=== PATIENT | female | born 1940 | race Caucasian/White ===

== ENCOUNTER 2016-08-19 13:12 | Emergency (ER) | payer OTHER ==
[~2016-08-19] VITALS: Ht 157.5 cm; Wt 72.6 kg
[~2016-08-19 13:12] MED LIST: ASPI81TA83 PO; CALCCHW12 PO; FISH1000 PO; LEVO100T PO; MULTIVIT PO; PAIN325T OR; ROSU10TA PO; SM I100T PO; [UNRECOGNIZED DRUG - OTHER] PO
[2016-08-19] MEDS ORDERED: NORV5TAB PO (13:39)
[2016-08-19 14:30] LABS: BASO % 0.5 % (0.0-1.0); EOS # 0.2 K/mm3 (0.0-0.50); EOS % 2.4 % (0.0-3.0); LARGE UNSTAINED CELL # 0.1 K/mm3 (0.0-0.4); LARGE UNSTAINED CELL % 1.5 % (0.0-4.0); LYMPH # 1.6 K/mm3 (1.5-4.5); LYMPH % 23.6 % (24.0-44.0); MEAN CORPUSCULAR HEMOGLOBIN 31.1 pg (27.0-33.0); MEAN CORPUSCULAR HGB CONC 33.2 g/dl (32.0-36.5); MEAN CORPUSCULAR VOLUME 93.8 fl (80.0-96.0); MONO # 0.5 K/mm3 (0.0-0.8); MONO % 7.1 % (0.0-5.0); NEUTROPHILS # 4.4 K/mm3 (1.8-7.7); NEUTROPHILS % 64.8 % (36.0-66.0); PLATELET COUNT, AUTOMATED 254 k/mm3 (150-450); RED CELL DISTRIBUTION WIDTH 13.1 % (11.5-14.5); WHITE BLOOD COUNT 6.8 K/mm3 (4.0-10.0)
[2016-08-19 14:38] LABS: INR 0.88
[2016-08-19 14:52] LABS: ANION GAP 8 MEQ/L (8-16); BLOOD UREA NITROGEN 23 MG/DL (7-18); CALCIUM LEVEL 8.7 MG/DL (8.8-10.2); CARBON DIOXIDE LEVEL 25 MEQ/L (21-32); CHLORIDE LEVEL 106 MEQ/L (98-107); CREATININE FOR GFR 0.97 MG/DL (0.55-1.02); GLOMERULAR FILTRATION RATE 59.1 (>39); GLUCOSE, FASTING 85 MG/DL (83-110); POTASSIUM SERUM 3.9 MEQ/L (3.5-5.1); SODIUM LEVEL 139 MEQ/L (136-145)
[2016-08-19] MEDS ORDERED: LOSA50TA20 PO (15:11)
[2016-08-19 15:42] VITALS: BP 143/63
--- NOTE | 2016-08-19 16:48 | ECGEPIP ---
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
--- NOTE | 2016-08-20 06:49 | REP ---
CT BRAIN WITHOUT CONTRAST: CT brain is performed without IV contrast. There is moderate atrophy. There are some periventricular small vessel ischemic changes in the white matter seen on prior study of 04/26/2010. There is no acute hemorrhage. There is no extra-axial fluid collection. I do not see evidence of a skull fracture. There are mild vascular calcifications in the carotid siphons. IMPRESSION: Chronic changes. No evidence of acute intracranial hemorrhage. No evidence of skull fracture. Signed by Brendan Leon MD 08/20/2016 07:49 P
--- NOTE | 2016-08-20 06:50 | REP ---
CT MAXILLOFACIAL BONES: CT maxillofacial bones performed in the axial plane with sagittal and coronal reconstruction images. There is no evidence of fracture of the visualized maxillofacial bones. No intrinsic osseous pathology is seen. The paranasal sinuses are clear with no air fluid levels. There are vascular calcifications in the carotid siphons. The globes appear intact. The visualized soft tissue structures appear grossly unremarkable. IMPRESSION: No evidence of maxillofacial bone fracture. Signed by Brendan Leon MD 08/20/2016 07:49 P
== END 2016-08-19 15:45 | disposition home or self-care (01) ==
LOC: M ED 14:01
DX: R55 Syncope and collapse (principal); S00.83XA Contusion of other part of head, initial encounter; W19.XXXA Unspecified fall, initial encounter; Y92.89 Other specified places as the place of occurrence of the external cause; Y93.89 Activity, other specified; Y99.8 Other external cause status; R00.1 Bradycardia, unspecified; I10 Essential (primary) hypertension; E07.9 Disorder of thyroid, unspecified; M19.90 Unspecified osteoarthritis, unspecified site; Z79.899 Other long term (current) drug therapy; Z79.82 Long term (current) use of aspirin; Z88.5 Allergy status to narcotic agent; Z87.891 Personal history of nicotine dependence

== ENCOUNTER → 2016-09-12 | Outpatient (REF) | payer OTHER ==
[~2016-09-12] MED LIST changes: +LOSA50TA20 PO; +NORV5TAB PO
[2016-09-12 12:14] LABS: MEAN CORPUSCULAR HEMOGLOBIN 30.7 pg (27.0-33.0); MEAN CORPUSCULAR HGB CONC 32.9 g/dl (32.0-36.5); MEAN CORPUSCULAR VOLUME 93.4 fl (80.0-96.0); RED CELL DISTRIBUTION WIDTH 13.5 % (11.5-14.5)
[2016-09-12 12:18] LABS: CALCIUM LEVEL 9.5 MG/DL (8.8-10.2); CREATININE FOR GFR 0.98 MG/DL (0.55-1.02); GLOMERULAR FILTRATION RATE 58.4 (>39); POTASSIUM SERUM 4.5 MEQ/L (3.5-5.1)
== END ==
LOC: M LABDRAW1 11:42
PROVIDERS: ATTEND Internal Medicine Cardiovascular Disease
DX: I49.5 Sick sinus syndrome (principal); I65.29 Occlusion and stenosis of unspecified carotid artery; R07.9 Chest pain, unspecified; R94.30 Abnormal result of cardiovascular function study, unspecified

== ENCOUNTER 2017-03-05 09:03 | Day surgery (SDC) | payer OTHER ==
[~2017-03-05] VITALS: Ht 157.5 cm; Wt 69.0 kg
[~2017-03-05 09:03] MED LIST changes: +MAGN400T5 PO; +OMEG100011 PO
[2017-03-05] MEDS ORDERED: LIDOCAINE 2% INJ 100 MG/5 ML SDV (FOR ANES.) As Ordered ONE (09:11)
[2017-03-05] MEDS ORDERED: PROPOFOL 200 MG/20 ML VIAL As Ordered ONE (09:11)
[2017-03-05] MEDS ORDERED: NS 1,000 ML IV ONE (09:30)
[2017-03-05] MEDS ORDERED: CRES5TAB PO (09:41)
--- NOTE | 2017-03-05 10:13 | ROOR ---
Patient Name: Amara Mario Procedure Date: 03/05/2017 9:54 AM Date of : 1940 Age: 77 Room: [facility] Gender: Female Note Status: Finalized Procedure: Total Colonoscopy to Cecum Indications: Gastrointestinal occult blood loss Providers: David Ordoñez MD Referring MD: Nova Sharma DO Requesting Provider: Medicines: Monitored Anesthesia Care Complications: No immediate complications. Procedure: Pre-Anesthesia Assessment: - The heart rate, respiratory rate, oxygen saturations, blood pressure, adequacy of pulmonary ventilation, and response to care were monitored throughout the procedure. The Colonoscope was introduced through the anus and advanced to the cecum, identified by appendiceal orifice and ileocecal valve. The colonoscopy was performed without difficulty. The patient tolerated the procedure well. The quality of the bowel preparation was excellent. Findings: The perianal and digital rectal examinations were normal. Non-bleeding internal hemorrhoids were found during retroflexion. The hemorrhoids were small and Grade I (internal hemorrhoids that do not prolapse). The exam was otherwise without abnormality on direct and retroflexion views. Impression: - Non-bleeding internal hemorrhoids. - The examination was otherwise normal on direct and retroflexion views. - No specimens collected. - The exam was otherwise normal to the cecum. Recommendation: - Patient has a contact number available for emergencies. The signs and symptoms of potential delayed complications were discussed with the patient. Return to normal activities tomorrow. Written discharge instructions were provided to the patient. - High fiber diet. - Discharge patient to home. - Continue present medications. - Repeat colonoscopy for symptoms only. - Return to referring physician. - The findings and recommendations were discussed with the patient's family. David Ordoñez MD David Ordoñez MD 03/05/2017 10:12:46 AM This report has been signed electronically. Number of Addenda: 0 Note Initiated On: 03/05/2017 9:54 AM Estimated Blood Loss: Estimated blood loss: none.
[2017-03-05 10:30] VITALS: BP 178/77
== END 2017-03-05 10:47 | disposition home or self-care (01) ==
LOC: M OPP 09:03
PROVIDERS: ATTEND Internal Medicine Gastroenterology
DX: K64.0 First degree hemorrhoids (principal); R19.5 Other fecal abnormalities; I10 Essential (primary) hypertension; E03.9 Hypothyroidism, unspecified; M19.90 Unspecified osteoarthritis, unspecified site; Z79.899 Other long term (current) drug therapy; Z88.5 Allergy status to narcotic agent; Z95.0 Presence of cardiac pacemaker; Z78.0 Asymptomatic menopausal state; Z87.891 Personal history of nicotine dependence; Z95.818 Presence of other cardiac implants and grafts

== ENCOUNTER → 2018-01-25 | Outpatient (CLI) | payer OTHER ==
[2018-01-25 13:54] LABS: ALBUMIN 3.6 GM/DL (3.2-5.2); ALBUMIN/GLOBULIN RATIO 1.06 (1.00-1.93); ALKALINE PHOSPHATASE 101 U/L (45-117); ALT/SGPT 32 U/L (12-78); ANION GAP 10 MEQ/L (8-16); AST/SGOT 26 U/L (7-37); BILIRUBIN,TOTAL 0.6 MG/DL (0.2-1.0); BLOOD UREA NITROGEN 28 MG/DL (7-18); CALCIUM LEVEL 9.2 MG/DL (8.8-10.2); CARBON DIOXIDE LEVEL 24 MEQ/L (21-32); CHLORIDE LEVEL 107 MEQ/L (98-107); CREATININE FOR GFR 1.08 MG/DL (0.55-1.30); GLOMERULAR FILTRATION RATE 52.1 (>39); GLUCOSE, FASTING 96 MG/DL (70-100); POTASSIUM SERUM 4.6 MEQ/L (3.5-5.1); SODIUM LEVEL 141 MEQ/L (136-145); THYROID STIMULATING HORMONE 0.772 uIU/ML (0.358-3.740)
== END ==
LOC: M ADAMS 10:52
DX: E03.9 Hypothyroidism, unspecified (principal)
CPT/HCPCS: 84443

== ENCOUNTER 2018-03-25 11:47 | Inpatient (IN) | payer OTHER ==
[2018-03-25 12:41] LABS: KETONE, URINE AUTO RFX NEGATIVE (NEGATIVE); LEUKOCYTE ESTERASE UR AUTO RFX NEGATIVE (NEGATIVE); NITRITE, URINE AUTO RFX NEGATIVE (NEGATIVE); RBC, URINE AUTO RFX 1 /HPF (0-3); SPECIFIC GRAVITY UR AUTO RFX 1.009 (1.002-1.035); SQUAM EPITHELIAL CELL UR AURFX 0 /HPF (0-6); WBC, URINE AUTO RFX 0 /HPF (0-3)
[2018-03-25 12:48] LABS: BASO # 0.1 10^3/uL (0.0-0.2); BASO % 0.6 % (0.0-1.0); EOS # 0.1 10^3/uL (0.0-0.50); HEMATOCRIT 44.9 % (36.0-47.0); HEMOGLOBIN 14.4 g/dl (12.0-15.5); IMMATURE GRANULOCYTE % 0.3 % (0-3.0); MEAN CORPUSCULAR HEMOGLOBIN 29.9 pg (27.0-33.0); MEAN CORPUSCULAR HGB CONC 32.1 g/dl (32.0-36.5); MEAN CORPUSCULAR VOLUME 93.3 fl (80.0-96.0); MONO # 0.6 10^3/uL (0.0-0.8); MONO % 6.5 % (0.0-5.0); NEUTROPHILS # 6.3 10^3/uL (1.8-7.7); NEUTROPHILS % 69.6 % (36.0-66.0); PLATELET COUNT, AUTOMATED 267 10^3/uL (150-450); RED BLOOD COUNT 4.81 10^6/uL (4.00-5.40); RED CELL DISTRIBUTION WIDTH 13.2 % (11.5-14.5)
[2018-03-25] MEDS: ONDANSETRON 4MG/2ML VIAL (J2405) IV (12:50)
[2018-03-25] MEDS: NS 500 ML IV (12:50)
[2018-03-25] MEDS: MORPHINE 2 MG/ML 1ML SYRINGE (J2270) IV (12:51)
[2018-03-25 13:27] LABS: AMMONIA 28 uMOL/L (<32)
[2018-03-25 13:27] LABS: ALBUMIN 3.9 GM/DL (3.2-5.2); ALBUMIN/GLOBULIN RATIO 1.11 (1.00-1.93); ALKALINE PHOSPHATASE 96 U/L (45-117); ALT/SGPT 34 U/L (12-78); ANION GAP 8 MEQ/L (8-16); AST/SGOT 43 U/L (7-37); BILIRUBIN,DIRECT 0.1 MG/DL (0.0-0.2); BILIRUBIN,TOTAL 0.7 MG/DL (0.2-1.0); BLOOD UREA NITROGEN 24 MG/DL (7-18); CALCIUM LEVEL 9.4 MG/DL (8.8-10.2); CARBON DIOXIDE LEVEL 24 MEQ/L (21-32); CHLORIDE LEVEL 110 MEQ/L (98-107); CPK CREATINE PHOSPHOKINASE 137 U/L (26-192); CREATININE FOR GFR 1.07 MG/DL (0.55-1.30); ETHYL ALCOHOL (ETHANOL) < 0.003 % (0.000-0.010); GLOMERULAR FILTRATION RATE 52.5 (>32); GLUCOSE, FASTING 104 MG/DL (70-100); MB/CK RELATIVE INDEX 0.88 (< OR =4); POTASSIUM SERUM 5.9 MEQ/L (3.5-5.1); SODIUM LEVEL 142 MEQ/L (136-145); TOTAL PROTEIN 7.4 GM/DL (6.4-8.2); TROPONIN I < 0.02 NG/ML (< 0.10)
[2018-03-25 13:37] LABS: OSMOLALITY SERUM 303 MOSM/KG (280-301)
[2018-03-25] MEDS ORDERED: ONDANSETRON 4MG/2ML VIAL (J2405) IV (17:45)
[2018-03-25] MEDS ORDERED: PILL CRUSHER/CUTTER 1 EACH XX (18:00)
[2018-03-25] MEDS ORDERED: hydrALAZINE INJ 20 MG/ML VIAL As Ordered (21:06)
[2018-03-25] MEDS: hydrALAZINE INJ 20 MG/ML VIAL IV (21:28)
[2018-03-25 22:47] LABS: CPK CREATINE PHOSPHOKINASE 66 U/L (26-192); MB/CK RELATIVE INDEX 2.27 (< OR =4); TROPONIN I < 0.02 NG/ML (< 0.10)
[2018-03-25] MEDS: NS 1,000 ML IV (23:32)
[2018-03-26] MEDS: LIDOCAINE 5% (LIDODERM) PATCH TD
[2018-03-26] MEDS: HALOPERIDOL 2 MG TAB PO (00:15)
[2018-03-26] MEDS: HALOPERIDOL 5 MG/ML VIAL (J1630) IV (00:49)
[2018-03-26 01:25] LABS: TROPONIN I < 0.02 NG/ML (< 0.10)
[2018-03-26] MEDS: LEVOTHYROXINE 88MCG TABLET (0.088 MG) PO (06:00)
[2018-03-26 06:27] LABS: C REACTIVE PROTEIN QUANTITATIV < 0.30 MG/DL (0.00-0.30); CPK CREATINE PHOSPHOKINASE 88 U/L (26-192); MB/CK RELATIVE INDEX 2.39 (< OR =4); TROPONIN I < 0.02 NG/ML (< 0.10)
[2018-03-26 06:29] LABS: AMMONIA 23 uMOL/L (<32)
[2018-03-26 07:54] LABS: HEMATOCRIT 42.4 % (36.0-47.0); HEMOGLOBIN 13.8 g/dl (12.0-15.5); MEAN CORPUSCULAR HEMOGLOBIN 30.4 pg (27.0-33.0); MEAN CORPUSCULAR HGB CONC 32.5 g/dl (32.0-36.5); MEAN CORPUSCULAR VOLUME 93.4 fl (80.0-96.0); PLATELET COUNT, AUTOMATED 255 10^3/uL (150-450); RED BLOOD COUNT 4.54 10^6/uL (4.00-5.40); RED CELL DISTRIBUTION WIDTH 13.5 % (11.5-14.5); WHITE BLOOD COUNT 9.3 10^3/uL (4.0-10.0)
[2018-03-26 08:19] LABS: ALBUMIN 3.3 GM/DL (3.2-5.2); ALBUMIN/GLOBULIN RATIO 1.06 (1.00-1.93); ALKALINE PHOSPHATASE 87 U/L (45-117); ALT/SGPT 27 U/L (12-78); ANION GAP 9 MEQ/L (8-16); AST/SGOT 22 U/L (7-37); BILIRUBIN,TOTAL 0.5 MG/DL (0.2-1.0); BLOOD UREA NITROGEN 20 MG/DL (7-18); CALCIUM LEVEL 8.4 MG/DL (8.8-10.2); CARBON DIOXIDE LEVEL 23 MEQ/L (21-32); CHLORIDE LEVEL 113 MEQ/L (98-107); CREATININE FOR GFR 0.96 MG/DL (0.55-1.30); GLOMERULAR FILTRATION RATE 59.5 (>32); GLUCOSE, FASTING 100 MG/DL (70-100); MAGNESIUM LEVEL 1.9 MG/DL (1.8-2.4); POTASSIUM SERUM 4.2 MEQ/L (3.5-5.1); SODIUM LEVEL 145 MEQ/L (136-145); TOTAL PROTEIN 6.4 GM/DL (6.4-8.2)
[2018-03-26] MEDS: OMEGA-3 1000MG CAPSULE PO (08:55)
[2018-03-26] MEDS: ASPIRIN 81 MG ENTERIC TAB PO (08:55)
[2018-03-26] MEDS: ENOXAPARIN 40 MG/0.4 ML SYRINGE (J1650) SC (08:55)
[2018-03-26] MEDS: ROSUVASTATIN 10 MG TAB (CRESTOR) PO (08:55)
[2018-03-26] MEDS: MAGNESIUM OXIDE 400 MG TAB (MAG-OX) PO (08:55)
[2018-03-26] MEDS ORDERED: PILL CRUSHER/CUTTER 1 EACH XX (11:00)
[2018-03-26] MEDS: **NOTE PATIENT COMMENT** MISC XX (11:56)
[2018-03-26 14:21] LABS: CPK CREATINE PHOSPHOKINASE 117 U/L (26-192); MB/CK RELATIVE INDEX 3.08 (< OR =4); TROPONIN I < 0.02 NG/ML (< 0.10)
[2018-03-26] MEDS: LOSARTAN 25 MG TAB PO (18:57)
[2018-03-26] MEDS: TAMSULOSIN 0.4 MG CAP PO (22:06)
[2018-03-27 05:40] LABS: HEMATOCRIT 38.9 % (36.0-47.0); HEMOGLOBIN 12.8 g/dl (12.0-15.5); MEAN CORPUSCULAR HEMOGLOBIN 30.3 pg (27.0-33.0); MEAN CORPUSCULAR HGB CONC 32.9 g/dl (32.0-36.5); PLATELET COUNT, AUTOMATED 217 10^3/uL (150-450); RED BLOOD COUNT 4.23 10^6/uL (4.00-5.40); RED CELL DISTRIBUTION WIDTH 13.2 % (11.5-14.5)
[2018-03-27 05:54] LABS: ANION GAP 8 MEQ/L (8-16); BLOOD UREA NITROGEN 20 MG/DL (7-18); CALCIUM LEVEL 8.6 MG/DL (8.8-10.2); CARBON DIOXIDE LEVEL 23 MEQ/L (21-32); CHLORIDE LEVEL 109 MEQ/L (98-107); CREATININE FOR GFR 0.87 MG/DL (0.55-1.30); GLOMERULAR FILTRATION RATE > 60.0 (>32); GLUCOSE, FASTING 95 MG/DL (70-100); MAGNESIUM LEVEL 1.9 MG/DL (1.8-2.4); POTASSIUM SERUM 4.3 MEQ/L (3.5-5.1); SODIUM LEVEL 140 MEQ/L (136-145)
[2018-03-27] MEDS: LEVOTHYROXINE 88MCG TABLET (0.088 MG) PO (06:51)
[2018-03-27] MEDS: OMEGA-3 1000MG CAPSULE PO (08:32)
[2018-03-27] MEDS: ENOXAPARIN 40 MG/0.4 ML SYRINGE (J1650) SC (08:32)
[2018-03-27] MEDS: ASPIRIN 81 MG ENTERIC TAB PO (08:32)
[2018-03-27] MEDS: LOSARTAN 25 MG TAB PO (08:33)
[2018-03-27] MEDS: MAGNESIUM OXIDE 400 MG TAB (MAG-OX) PO (08:33)
== END 2018-03-27 18:05 | disposition home or self-care (01) | DRG 948 ==
LOC: M PCU 03-26 14:55 → M ED 11:47 → M ED INP 18:04
DX: R41.82 Altered mental status, unspecified (principal); I10 Essential (primary) hypertension; E78.5 Hyperlipidemia, unspecified; E28.39 Other primary ovarian failure; M54.5 Low back pain; R07.9 Chest pain, unspecified; T42.8X5A Adverse effect of antiparkinsonism drugs and other central muscle-tone depressants, initial encounter; R33.9 Retention of urine, unspecified; Z79.82 Long term (current) use of aspirin; Z79.899 Other long term (current) drug therapy; Z88.5 Allergy status to narcotic agent; Z88.8 Allergy status to other drugs, medicaments and biological substances

== ENCOUNTER → 2018-04-22 | Outpatient (CLI) | payer MEDICARE ==
[~2018-04-22] MED LIST changes: +ASPI1TAB PO; +BACL10TA2 PO; +BACL1TAB8 PO; +CRES5TAB PO; +FISH7.5C PO; +FLOM0.4C39 PO; +KETO10TAB PO; +LEVO88TA3 PO; +LIDO5TD TD; +LOSA25TA14 PO; -LOSA50TA20 PO; +LOSA50TA88 PO; +MAGN400T2 PO; +NAPR1TAB86 PO; +ROSU5TAB4 PO; +SKEL800T97 PO; +SYNT88TA2 PO; +VALS1TAB46 PO
== END ==
LOC: M SMT 11:12
PROVIDERS: ATTEND Obstetrics & Gynecology
DX: N83.202 Unspecified ovarian cyst, left side (principal)

== ENCOUNTER → 2018-05-01 | Outpatient (CLI) | payer MEDICARE ==
--- NOTE | 2018-05-01 13:43 | REPMRS ---
Patient History The patient states she has not had a clinical breast exam in over a year. Patient is postmenopausal. Family history of breast cancer at age 19 in sister, prostate cancer in brother. Prior mammogram 2 years ago at [facility]. We will call and get films. Digital Mammo Screening Bilat: May 01, 2018 - Exam #: [id number] Bilateral CC and MLO view(s) were taken. Technologist: Radha Du, Technologist Prior study comparison: May 23, 2016, bilateral digital woman screen mammo, performed at [facility]. February 16, 2014, bilateral digital woman screen mammo, performed at [facility]. June 01, 2009, bilateral digital woman screen mammo, performed at [facility]. FINDINGS: There are scattered fibroglandular densities. A loop recorder overlies the medial aspect of the left breast. There is a stable benign nodular opacity in the lateral aspect of the right breast unchanged. There has been no change in the appearance of the mammogram from the prior studies. There is a mild amount of scattered fibroglandular density which is fairly symmetric. There is no interval development of dominant mass, architectural distortion, or clustered microcalcification suggestive of malignancy. 3-D tomosynthesis shows no additional findings. Assessment: BI-RADS/ACR category 2 mammogram. Benign Findings. Recommendation Routine screening mammogram of both breasts in 1 year (for women over age 40). This patient's Lifetime Breast Cancer RIsk is estimated at 2.7 %. This mammogram was interpreted with the aid of an FDA-approved computer-aided dectection system. Electronically Signed By: Trae Montalvo MD 05/01/18 [id number]
--- NOTE | 2018-05-01 22:53 | REP ---
Clinical: Pelvic pain. Ovarian cyst. Technique: Transabdominal pelvic ultrasound followed by transvaginal examination for better evaluation of the endometrium and adnexa with color Doppler evaluation of the ovaries. Findings: Bladder is unremarkable and measures 10.1 x 14.5 x 6.6 cm . Heterogeneous anteverted uterus measures 5.0 x 3.0 x 3.4 cm . The endometrial complex measures 7.5 mm thickness. No discrete uterine or endometrial abnormalities are appreciated. Bilateral ovaries are normal in appearance and vascularity without evidence for torsion. Right ovary measures 2.1 x 0.7 x 1.1 cm. Left ovary measures 7.9 x 5.3 x 7.2 cm and includes 7.3 x 4.8 x 6.7 cm cyst; RI = 0.52. No pelvic fluid or adnexal mass lesion . Impression: 1. Mildly thickened endometrial complex is otherwise nonspecific. No focal uterine or endometrial abnormality identified. 2. Large left ovarian cyst Electronically Signed by Bridger George MD 05/01/2018 10:45 P
== END ==
LOC: M RAD 12:25
PROVIDERS: ATTEND Obstetrics & Gynecology
DX: Z12.31 Encounter for screening mammogram for malignant neoplasm of breast (principal); Z78.0 Asymptomatic menopausal state; N83.292 Other ovarian cyst, left side; Z80.3 Family history of malignant neoplasm of breast

== ENCOUNTER → 2018-05-24 | Outpatient (REF) | payer MEDICARE ==
[2018-05-24 13:49] LABS: HEMATOCRIT 41.1 % (36.0-47.0); HEMOGLOBIN 13.7 g/dl (12.0-15.5); RED BLOOD COUNT 4.29 10^6/uL (4.00-5.40); WHITE BLOOD COUNT 7.3 10^3/uL (4.0-10.0)
[2018-05-24 13:50] LABS: BASO # 0.1 10^3/uL (0.0-0.2); EOS # 0.2 10^3/uL (0.0-0.50); LYMPH # 2.1 10^3/uL (1.5-4.5); LYMPH % 28.4 % (24.0-44.0); MEAN CORPUSCULAR HEMOGLOBIN 31.9 pg (27.0-33.0); MEAN CORPUSCULAR HGB CONC 33.3 g/dl (32.0-36.5); MEAN CORPUSCULAR VOLUME 95.8 fl (80.0-96.0); MONO # 0.7 10^3/uL (0.0-0.8); MONO % 8.9 % (0.0-5.0); NEUTROPHILS # 4.3 10^3/uL (1.8-7.7); NEUTROPHILS % 58.2 % (36.0-66.0); PLATELET COUNT, AUTOMATED 262 10^3/uL (150-450)
[2018-05-24 14:15] LABS: ALBUMIN 3.5 GM/DL (3.2-5.2); BILIRUBIN,TOTAL 0.3 MG/DL (0.2-1.0); CALCIUM LEVEL 8.9 MG/DL (8.8-10.2); CHOLESTEROL RISK RATIO 3.49 (<5); CREATININE FOR GFR 1.01 MG/DL (0.55-1.30); GLOMERULAR FILTRATION RATE 56.1 (>32); POTASSIUM SERUM 4.9 MEQ/L (3.5-5.1); THYROID STIMULATING HORMONE 1.32 uIU/ML (0.358-3.740)
== END ==
LOC: M LABDRWAD 12:13
PROVIDERS: ATTEND Internal Medicine Cardiovascular Disease
DX: R07.9 Chest pain, unspecified (principal); I65.29 Occlusion and stenosis of unspecified carotid artery; I49.5 Sick sinus syndrome; E66.9 Obesity, unspecified; R94.30 Abnormal result of cardiovascular function study, unspecified; R55 Syncope and collapse; I10 Essential (primary) hypertension; E78.5 Hyperlipidemia, unspecified

== ENCOUNTER 2018-08-04 17:12 | Observation (INO) | payer MEDICARE ==
[~2018-08-04] VITALS: Ht 157.5 cm; Wt 79.2 kg
[~2018-08-04 17:12] MED LIST changes: -ASPI1TAB PO; +ASPI81TA26 PO; +CRES10TA32 PO; -ROSU10TA PO; -VALS1TAB46 PO; +VALS1TAB66 PO
--- NOTE | 2018-08-04 18:11 | REPVR ---
EXAM: CT Head Without Contrast EXAM DATE/TIME: 08/04/2018 5:34 PM CLINICAL HISTORY: 78 years old, female; Injury or trauma; Fall; Initial encounter; Concussion / head injury; Consciousness not specified TECHNIQUE: Imaging protocol: Axial computed tomography images of the head/brain without contrast. Radiation optimization: All CT scans at this facility use at least one of these dose optimization techniques: automated exposure control; mA and/or kV adjustment per patient size (includes targeted exams where dose is matched to clinical indication); or iterative reconstruction. COMPARISON: CT Head without contrast 03/25/2018 11:48 PM FINDINGS: Brain: There is no evidence for an acute large vessel territorial infarct, intracranial hemorrhage, mass, mass effect, or herniation. There are non-specific foci of low attenuation in the periventricular and subcortical white matter, which are likely the sequela of chronic small vessel ischemic injury and are similar in appearance compared to the prior CT scan on 03/25/2018. Brainstem: Unremarkable. Midline shift: There is no midline shift. Ventricles: The ventricles are mildly to moderately dilated in proportion to the sulci, which is compatible with mild to moderate generalized cerebral volume loss that is similar in appearance compared to the prior CT scan on 03/25/2018. Bones/joints: Unremarkable. No acute fracture. Sinuses: Visualized sinuses are unremarkable. No acute sinusitis. Mastoid air cells: Visualized mastoid air cells are unremarkable. No mastoid effusion. Soft tissues: There is mild soft tissue swelling and edema along the left anterior aspect of the head (images 3-9 of the axial series 201). Vasculature: There are atherosclerotic calcifications of the intracranial portion of the internal carotid arteries. IMPRESSION: 1. Soft tissue swelling along the left anterior aspect of the head. 2. Intact calvarium. No acute intracranial hemorrhage or acute intracranial process. 3. Periventricular and subcortical white matter changes, which are likely the sequela of chronic small vessel ischemic injury and are similar in appearance compared to the prior CT scan on 03/25/2018. Electronically signed by: Roc Greene On 08/04/2018 18:11:23 PM
--- NOTE | 2018-08-04 18:18 | REPVR ---
EXAM: CT Cervical Spine Without Contrast EXAM DATE/TIME: 08/04/2018 5:34 PM CLINICAL HISTORY: 78 years old, female; Injury or trauma; Fall; Initial encounter; Blunt trauma TECHNIQUE: Imaging protocol: Axial computed tomography images of the cervical spine without contrast. Coronal and sagittal reformatted images were created and reviewed. Radiation optimization: All CT scans at this facility use at least one of these dose optimization techniques: automated exposure control; mA and/or kV adjustment per patient size (includes targeted exams where dose is matched to clinical indication); or iterative reconstruction. COMPARISON: CT Spine,cervical w/o contrast 03/25/2018 12:20 PM The report from this study was not available for review at the time of this interpretation. FINDINGS: Vertebrae: The alignment of the cervical spine is within normal limits. The atlantooccipital alignment is normal. The atlantoaxial alignment is normal. There is no fracture or subluxation. The vertebral body heights are preserved. There is no cervical rib. C2-C3: The disc height is preserved. No disc herniation, spinal canal stenosis, or neural foraminal stenosis is identified. The facet joints are normal. C3-C4: The disc height is preserved. No disc herniation, spinal canal stenosis, or neural foraminal stenosis is identified. There is mild osteoarthritis of the left facet joint. C4-C5: The disc height is preserved. No disc herniation, spinal canal stenosis, or neural foraminal stenosis is identified. The facet joints are normal. C5-C6: The disc height is preserved. No disc herniation, spinal canal stenosis, or neural foraminal stenosis is identified. There is mild osteoarthritis of the left facet joint. C6-C7: The disc height is preserved. No disc herniation, spinal canal stenosis, or neural foraminal stenosis is identified. The facet joints are normal. There are endplate spurs anteriorly. C7-T1: The disc height is preserved. No disc herniation, spinal canal stenosis, or neural foraminal stenosis is identified. The facet joints are normal. T1-T2: The disc height is preserved. No disc herniation, spinal canal stenosis, or neural foraminal stenosis is identified. There is mild osteoarthritis of the right facet joint. Soft tissues: Unremarkable. No soft tissue fluid collection is noted. Prevertebral Space: No prevertebral soft tissue swelling is noted. Vasculature: There are atherosclerotic calcifications of the left carotid bulb and the right proximal internal carotid artery. Lungs: There are mild centrilobular and paraseptal emphysematous changes in the imaged lung apices. IMPRESSION: No fracture or subluxation in the cervical spine. Electronically signed by: Roc Greene On 08/04/2018 18:18:14 PM
[2018-08-04 18:44] LABS: BASO # 0.1 10^3/uL (0.0-0.2); BASO % 0.7 % (0.0-1.0); EOS # 0.2 10^3/uL (0.0-0.50); EOS % 1.7 % (0.0-3.0); HEMATOCRIT 40.6 % (36.0-47.0); HEMOGLOBIN 13.1 g/dl (12.0-15.5); LYMPH # 2.6 10^3/uL (1.5-4.5); LYMPH % 23.1 % (24.0-44.0); MEAN CORPUSCULAR HEMOGLOBIN 30.5 pg (27.0-33.0); MEAN CORPUSCULAR HGB CONC 32.3 g/dl (32.0-36.5); MEAN CORPUSCULAR VOLUME 94.4 fl (80.0-96.0); MONO # 0.8 10^3/uL (0.0-0.8); MONO % 7.3 % (0.0-5.0); NEUTROPHILS # 7.5 10^3/uL (1.8-7.7); NEUTROPHILS % 66.7 % (36.0-66.0); PLATELET COUNT, AUTOMATED 253 10^3/uL (150-450); WHITE BLOOD COUNT 11.3 10^3/uL (4.0-10.0)
--- NOTE | 2018-08-04 19:34 | REP ---
Right hand four views History: Trauma There is no acute fracture or dislocation. There is narrowing of the navicular greater multangular and greater multangular first metacarpal joint space, and second through fourth metacarpal phalangeal joint spaces . Osteophytes are present at the greater multangular first metacarpal joint space. The remaining joint spaces are normal in appearance. Impression: There is no acute fracture or dislocation. Electronically Signed by Tesfaye Russo MD 08/04/2018 07:25 P
--- NOTE | 2018-08-04 19:37 | REP ---
Of bilateral humerus four views History: Trauma Right humerus There is no acute fracture or dislocation. There is moderate narrowing of the acromioclavicular joint space with associated osteophyte formation. Impression impression: There is no acute fracture or dislocation. Left humerus There is no acute fracture or dislocation. There is mild narrowing of the acromioclavicular joint space. Impression: There is no acute fracture or dislocation. Electronically Signed by Tesfaye Russo MD 08/04/2018 07:28 P
[2018-08-04 19:43] LABS: INR 0.92; PROTHROMBIN TIME 12.4 SECONDS (12.1-14.4)
[2018-08-04 19:58] LABS: BLOOD UREA NITROGEN 23 MG/DL (7-18); CALCIUM LEVEL 9.3 MG/DL (8.8-10.2); CARBON DIOXIDE LEVEL 25 MEQ/L (21-32); CHLORIDE LEVEL 110 MEQ/L (98-107); CPK CREATINE PHOSPHOKINASE 235 U/L (26-192); FREE T4 1.01 NG/DL (0.76-1.46); GLOMERULAR FILTRATION RATE 50.9 (>32); GLUCOSE, FASTING 83 MG/DL (70-100); MB/CK RELATIVE INDEX 1.96 (< OR =4); POTASSIUM SERUM 4.2 MEQ/L (3.5-5.1); SODIUM LEVEL 141 MEQ/L (136-145); TROPONIN I < 0.02 NG/ML (< 0.10)
[2018-08-04] MEDS ORDERED: NS 500 ML IV ONE (20:15)
[2018-08-04] MEDS ORDERED: cloNIDine 0.1 MG TAB PO ONE (20:45)
[2018-08-04] MEDS ORDERED: LORazepam 2 MG/ML VIAL (J2060) IV STA (21:00)
[2018-08-04 23:15] VITALS: BP_SYST 140; BP_SYST 146; BP_SYST 150; BP_DIAS 60; BP_DIAS 72; BP_DIAS 80
[2018-08-04] MEDS: ASPIRIN 81 MG ENTERIC TAB PO SCH (23:24)
[2018-08-04] MEDS: MAGNESIUM OXIDE 400 MG TAB (MAG-OX) PO SCH (23:24)
[2018-08-04] MEDS: ACETAMINOPHEN TAB 650MG DOSE (2X325MG) PO PRN (23:26)
[2018-08-04 23:45] VITALS: BP 138/82
[2018-08-05 06:00] VITALS: BP 120/60
[2018-08-05 08:28] LABS: HEMATOCRIT 37.7 % (36.0-47.0); HEMOGLOBIN 12.4 g/dl (12.0-15.5); MEAN CORPUSCULAR HEMOGLOBIN 30.9 pg (27.0-33.0); MEAN CORPUSCULAR HGB CONC 32.9 g/dl (32.0-36.5); PLATELET COUNT, AUTOMATED 236 10^3/uL (150-450); RED BLOOD COUNT 4.01 10^6/uL (4.00-5.40); WHITE BLOOD COUNT 6.2 10^3/uL (4.0-10.0)
[2018-08-05] MEDS: LEVOTHYROXINE 88MCG TABLET (0.088 MG) PO SCH (08:30)
[2018-08-05] MEDS: OMEGA-3 1000MG CAPSULE PO SCH (08:30)
[2018-08-05] MEDS: LOSARTAN 25 MG TAB PO SCH (08:31)
--- NOTE | 2018-08-05 08:43 | HPE ---
DATE OF ADMISSION: 08/04/2018 CHIEF COMPLAINT: "I fell down." HISTORY OF PRESENT ILLNESS: 78-year-old female who was brought to the emergency department after she fell down at home. The patient was riding a tractor and fell down while getting down. The patient does not remember anything about the fall episode. The last thing she remembers is that after getting down from the tractor she fell down. The patient is not sure if she lost consciousness. Family members were nearby and they brought her to the emergency department. It appears that the patient might have lost consciousness for a few seconds. The patient was alert, oriented and there was no focal deficit after the episode of fall. In the emergency department, the patient was found with vitals of temperature 97.2, heart rate 61, respiratory rate 20, blood pressure 186/66, saturating 98% on room air. EKG was normal sinus rhythm. CT of the head did not show any acute pathology but showed soft tissue swelling over the left forehead area. The hospitalist service was consulted to admit the patient for further workup. The patient was seen and examined at bedside in the emergency department. Family members at bedside. The patient was resting comfortably in the bed. The patient denied any physical complaints except some pain around the left forehead swelling site. PAST MEDICAL HISTORY: 1. Chronic lower back pain. 2. Hypothyroidism. 3. Hypertension. 4. Hyperlipidemia. PAST SURGICAL HISTORY: 1. Umbilical hernia repair. ALLERGIES: NO KNOWN MEDICATION ALLERGIES. HOME MEDICATIONS: Reviewed. Please refer medical record. SOCIAL HISTORY: Former smoker. Denies alcohol intake. 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 FAMILY HISTORY: Reviewed and noncontributory. REVIEW OF SYSTEMS: 10-point review of systems was performed and was negative except as per history of present illness. PHYSICAL EXAMINATION: GENERAL: Comfortable, not in acute distress. HEENT: There is a bruise over the left forehead area. No open lesions. Bilateral pupils are round and reacting to light and accommodation. Oral mucosa moist. NECK: Supple. RESPIRATORY SYSTEM: Clear to auscultation. No added sounds. CARDIOVASCULAR SYSTEM: Regular rate and rhythm. EXTREMITIES: No peripheral edema. SKIN: No rash. No open lesions. ABDOMEN: Soft, nontender. Bowel sounds positive. NEUROLOGIC: No focal deficits. Bilateral upper and lower extremity strength 5/5/5/5. Cranial nerves II-XII grossly intact. PSYCHIATRIC: Mood is normal. LABORATORIES/IMAGING STUDIES: Reviewed. WBC 11.3, hemoglobin 13.1, platelets 253, BUN 23, creatinine 1.1, blood glucose 83. CT of the head showed no acute pathology, soft tissue swelling over the left forehead area. CT of the cervical spine showed no acute pathology. Bilateral humerus x-rays showed no acute pathology. Right hand x-ray showed no acute pathology. This was done for right hand swelling over the dorsal aspect. ASSESSMENT: 78-year-old female who was brought to the emergency department after one episode of witnessed fall. It is unclear if the patient briefly lost consciousness. The patient stated that she had similar episode in the past when she tried to get up suddenly from a sitting posture. IMPRESSION: 1. Syncope. PLAN: 1. Syncope. Neuro checks. We will followup MRI of the head, MRA of the head and neck. We will followup with physical therapy (PT). 2. Hypothyroidism. Continue home medications. 3. Hypertension. We will resume home medication. 4. Hyperlipidemia. Continue home medication. 5. Chronic back pain. Continue home medication. AKIKO
[2018-08-05] MEDS ORDERED: ALPRAZolam 0.25 MG TAB PO ONE (12:15)
[2018-08-05 14:00] VITALS: BP 150/67
[2018-08-05] MEDS ORDERED: PROHANCE 279.3MG/ML 15ML VIAL (A9576) As Ordered ONE (14:33)
--- NOTE | 2018-08-05 14:33 | ECGEPIP ---
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
--- NOTE | 2018-08-05 16:06 | IPNPDOC ---
Subjective Date Seen The patient was seen on 08/05/18. Subjective Chief Complaint/HPI Patient seen and examined at the bedside. Denies any acute complaints of fevers, chills, chest pain, palpitations, shortness of breath, abdominal pain, or any nausea/vomiting/diarrhea. She states that she does not recollect the events that caused her to have a syncopal episode, but she does note that she does get dizzy at times when moving too quickly. Objective Physical Examination General Exam: Positive: Alert, Cooperative, No Acute Distress ENT Exam: Positive: Mucous membr. moist/pink Neck Exam: Negative: JVD Chest Exam: Positive: Clear to auscultation, Normal air movement Heart Exam: Positive: Rate Normal, Normal S1, Normal S2 Abdomen Exam: Positive: Soft; Negative: Tenderness Extremity Exam: Negative: Tenderness, Swelling Neuro Exam: Positive: Normal Speech, Strength at 5/5 X4 ext, Normal Tone, Sensation Intact, Cranial Nerves 3-12 NL Psych Exam: Positive: Oriented x 3 A-FIB/CHADSVASC A-FIB History Current/History of A-Fib/PAF?: No Assessment /Plan Plan/VTE VTE Prophylaxis Ordered?: Yes Plan Syncopal Episode possibly 2/[address] Head with no acute findings Orthostatics negative The patient does have a loop recorder--we will call the [facility] to see if there have been any notable events that took place yesterday on the recorder. 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 We will continue to monitor the patient at this time Hypothyroidism Continue levothyroxine Hypertension Continue losartan Dyslipidemia Continue rosuvastatin DVT prophylaxis SCDs/TEDs VS, I&O, 24H, Fishbone Vital Signs/I&O Vital Signs Date Time Temp Pulse Resp B/P (MAP) Pulse Ox O2 Delivery O2 Flow Rate FiO2 08/05/18 08:31 138/62 08/05/18 06:00 97.8 64 18 94 08/04/18 22:36 Room Air I&O- Last 24 Hours up to 6 AM 08/05/18 06:00 Intake Total 500 ml Output Total 300 ml Balance 200 ml Laboratory Data 24H LABS Laboratory Tests 2 08/04/18 18:19: Bedside Glucose (Misc Panel) 96 4/28/19 18:37: Immature Granulocyte % (Auto) 0.5, White Blood Count 11.3H, Red Blood Count 4.30, Hemoglobin 13.1, Hematocrit 40.6, Mean Corpuscular Volume 94.4, Mean Corpuscular Hemoglobin 30.5, Mean Corpuscular Hemoglobin Concent 32.3, Red Cell Distribution Width 13.4, Platelet Count 253, Neutrophils (%) (Auto) 66.7H, Lymphocytes (%) (Auto) 23.1L, Monocytes (%) (Auto) 7.3H, Eosinophils (%) (Auto) 1.7, Basophils (%) (Auto) 0.7, Neutrophils # (Auto) 7.5, Lymphocytes # (Auto) 2.6, Monocytes # (Auto) 0.8, Eosinophils # (Auto) 0.2, Basophils # (Auto) 0.1, Nucleated Red Blood Cells % (auto) 0.0 08/04/18 18:43: Bedside Glucose (Misc Panel) 81L 08/04/18 19:15: Prothrombin Time 12.4, Prothromb Time International Ratio 0.92, Anion Gap 6L, Glomerular Filtration Rate 50.9, Blood Urea Nitrogen 23H, Creatinine 1.10, Sodium Level 141, Potassium Level 4.2, Chloride Level 110H, Carbon Dioxide Level 25, Calcium Level 9.3, Total Creatine Kinase 235H, Magnesium Level 2.0, Creatine Kinase MB 5.0H, Creatine Kinase MB Relative Index 1.96, Troponin I < 0.02, Thyroid Stimulating Hormone (TSH) 1.690, Free Thyroxine 1.01 08/05/18 08:11: Nucleated Red Blood Cells % (auto) 0.0 CBC/BMP Laboratory Tests 08/04/18 18:37 Red Blood Count 4.30, Mean Corpuscular Volume 94.4, Mean Corpuscular Hemoglobin 30.5, Mean Corpuscular Hemoglobin Concent 32.3, Red Cell Distribution Width 13.4, Neutrophils (%) (Auto) 66.7 H, Lymphocytes (%) (Auto) 23.1 L, Monocytes (%) (Auto) 7.3 H, Eosinophils (%) (Auto) 1.7, Basophils (%) (Auto) 0.7, Neutrophils # (Auto) 7.5, Lymphocytes # (Auto) 2.6, Monocytes # (Auto) 0.8, Eosinophils # (Auto) 0.2, Basophils # (Auto) 0.1 08/04/18 19:15 Calcium Level 9.3, Total Creatine Kinase 235 H 08/05/18 08:11 Red Blood Count 4.01, Mean Corpuscular Volume 94.0, Mean Corpuscular Hemoglobin 30.9, Mean Corpuscular Hemoglobin Concent 32.9, Red Cell Distribution Width 13.5 NOAH RAMIREZ MD Aug 05, 2018 16:06
--- NOTE | 2018-08-05 18:01 | REP ---
MR BRAIN WITHOUT CONTRAST: HISTORY: Syncope. COMPARISON: CT 08/04/2018 Areas of increased signal intensity on T2 weighted images are present in the periventricular and subcortical white matter. This represents small vessel ischemic disease. There is no intraparenchymal hemorrhage, infarct, mass or midline shift. The ventricular system and cortical sulci are dilated consistent with mild volume loss. There is no extracerebral collection. The sinuses are clear. IMPRESSION:1. Small vessel ischemic disease. 2. Mild volume loss. Electronically Signed by Tesfaye Russo MD 08/06/2018 08:40 A
--- NOTE | 2018-08-05 18:54 | REP ---
MRA BRAIN WITHOUT CONTRAST: HISTORY: Syncope. COMPARISON: 03/25/2018 3-D [id number] MR angiography was performed at the level of the [place]. There is no aneurysm or arteriovenous malformation. Mild atherosclerotic disease involves the cavernous internal carotid arteries. Major intracranial vessels are patent. The vertebral arteries are equal in size. IMPRESSION: Atherosclerotic disease as described above. Electronically Signed by Tesfaye Russo MD 08/06/2018 08:41 A
--- NOTE | 2018-08-05 18:56 | REP ---
MRA CAROTIDS WITHOUT AND WITH CONTRAST: HISTORY: Syncope. CONTRAST: ProHance 12 mL. Unenhanced 2D and 3D and contrast enhanced MR angiography were performed at the level of the carotid bifurcations. The distal common carotid arteries and origins of the external and internal carotid arteries are normal. The vertebral arteries are equal in size and patent. There are no atherosclerotic lesions. IMPRESSION: Normal MRA carotids. Electronically Signed by Tesfaye Russo MD 08/06/2018 08:41 A
[2018-08-05] MEDS: MAGNESIUM OXIDE 400 MG TAB (MAG-OX) PO SCH (21:14)
[2018-08-05] MEDS: ASPIRIN 81 MG ENTERIC TAB PO SCH (21:14)
[2018-08-05 22:00] VITALS: BP 144/70
[2018-08-06 06:00] VITALS: BP 140/62
[2018-08-06 06:05] LABS: HEMOGLOBIN 12.2 g/dl (12.0-15.5); MEAN CORPUSCULAR HGB CONC 32.1 g/dl (32.0-36.5); MEAN CORPUSCULAR VOLUME 93.6 fl (80.0-96.0); PLATELET COUNT, AUTOMATED 223 10^3/uL (150-450); RED BLOOD COUNT 4.06 10^6/uL (4.00-5.40); WHITE BLOOD COUNT 7.6 10^3/uL (4.0-10.0)
[2018-08-06 06:29] LABS: CALCIUM LEVEL 8.7 MG/DL (8.8-10.2); CREATININE FOR GFR 1.04 MG/DL (0.55-1.30); GLOMERULAR FILTRATION RATE 54.3 (>32); POTASSIUM SERUM 4.1 MEQ/L (3.5-5.1)
[2018-08-06] MEDS: ROSUVASTATIN 10 MG TAB (CRESTOR) PO SCH (09:25)
[2018-08-06] MEDS: LEVOTHYROXINE 88MCG TABLET (0.088 MG) PO SCH (09:25)
[2018-08-06] MEDS: OMEGA-3 1000MG CAPSULE PO SCH (09:25)
[2018-08-06] MEDS: LOSARTAN 25 MG TAB PO SCH (09:25)
--- NOTE | 2018-08-06 13:35 | IPNPDOC ---
Subjective Date Seen The patient was seen on 08/06/18. Subjective Chief Complaint/HPI Patient seen and examined at the bedside. Reports that she is feeling well, and denies having any complaints of chest pain, palpitations, abdominal pain, or any nausea/vomiting/diarrhea. Objective Physical Examination General Exam: Positive: Alert, Cooperative, No Acute Distress ENT Exam: Positive: Mucous membr. moist/pink Neck Exam: Negative: JVD Chest Exam: Positive: Clear to auscultation, Normal air movement Heart Exam: Positive: Rate Normal, Normal S1, Normal S2 Abdomen Exam: Positive: Soft; Negative: Tenderness Extremity Exam: Negative: Tenderness, Swelling Neuro Exam: Positive: Normal Speech, Strength at 5/5 X4 ext, Normal Tone, Sensation Intact, Cranial Nerves 3-12 NL Psych Exam: Positive: Oriented x 3 A-FIB/CHADSVASC A-FIB History Current/History of A-Fib/PAF?: No Assessment /Plan Plan/VTE VTE Prophylaxis Ordered?: Yes Plan Syncopal Episode possibly 2/[address] Head with no acute findings Orthostatics negative MRI/MRA brain, MRI of carotid arteries with no acute findings No events noted on telemetry here Of note, the patient had a implantable loop recorder placed in November 2016 due to recurrent episodes of syncope of unclear etiology. She notes that her last episode was 2 years ago. I did obtain records from the patient's wireless internet installer's office (Dr. Pete), and it appears that her last loop recorder device check was on 07/24/2018 and did not reveal any acute findings. I did speak to Dr. Pete this morning and discussed Mrs. Mario's case in depth, and inquired about another loop recorder device check given her most recent episode. He did follow-up with the device indirect sales representative who will not be in the area today/tomorrow but can remotely access the patient's loop recorder when the patient gets home. Dr. Pete has recommended monitoring the patient for another day and discharging the patient home tomorrow with a scheduled phone call/follow-up with the loop r ecorder device indirect sales representative at 1 PM. He will then review the information and scheduled follow up accordingly. This was discussed with the patient and her daughter who agree with the above plan, and have verbalized understanding of the same. Hypothyroidism Continue levothyroxine Hypertension Continue losartan Dyslipidemia Continue rosuvastatin DVT prophylaxis SCDs/TEDs Disposition-anticipate discharge home in 24 hours. VS, I&O, 24H, Fishbone Vital Signs/I&O Vital Signs Date Time Temp Pulse Resp B/P (MAP) Pulse Ox O2 Delivery O2 Flow Rate FiO2 08/06/18 09:25 140/60 08/06/18 06:00 97.4 58 18 94 1.0 08/04/18 22:36 Room Air I&O- Last 24 Hours up to 6 AM 08/06/18 06:00 Intake Total 1800 ml Output Total 1200 ml Balance 600 ml Laboratory Data 24H LABS Laboratory Tests 2 08/06/18 05:35: Nucleated Red Blood Cells % (auto) 0.0, Anion Gap 3L, Glomerular Filtration Rate 54.3, Blood Urea Nitrogen 27H, Creatinine 1.04, Sodium Level 141, Potassium Level 4.1, Chloride Level 112H, Carbon Dioxide Level 26, Calcium Level 8.7L CBC/BMP Laboratory Tests 08/06/18 05:35 Red Blood Count 4.06, Mean Corpuscular Volume 93.6, Mean Corpuscular Hemoglobin 30.0, Mean Corpuscular Hemoglobin Concent 32.1, Red Cell Distribution Width 13.5, Calcium Level 8.7 L NOAH RAMIREZ MD Aug 06, 2018 13:35
[2018-08-06 14:00] VITALS: BP 177/72
[2018-08-06] MEDS: MAGNESIUM OXIDE 400 MG TAB (MAG-OX) PO SCH (21:32)
[2018-08-06] MEDS: ASPIRIN 81 MG ENTERIC TAB PO SCH (21:32)
[2018-08-06 22:00] VITALS: BP 180/70
[2018-08-07 06:00] VITALS: BP 160/70
[2018-08-07 07:45] LABS: HEMATOCRIT 40.1 % (36.0-47.0); HEMOGLOBIN 13.1 g/dl (12.0-15.5); MEAN CORPUSCULAR HEMOGLOBIN 30.6 pg (27.0-33.0); MEAN CORPUSCULAR HGB CONC 32.7 g/dl (32.0-36.5); MEAN CORPUSCULAR VOLUME 93.7 fl (80.0-96.0); PLATELET COUNT, AUTOMATED 218 10^3/uL (150-450); RED BLOOD COUNT 4.28 10^6/uL (4.00-5.40); WHITE BLOOD COUNT 8.4 10^3/uL (4.0-10.0)
[2018-08-07] MEDS: OMEGA-3 1000MG CAPSULE PO SCH (07:51)
[2018-08-07] MEDS: ACETAMINOPHEN TAB 650MG DOSE (2X325MG) PO PRN (07:52)
[2018-08-07 07:54] VITALS: BP 142/82
[2018-08-07] MEDS: LOSARTAN 25 MG TAB PO SCH (07:54)
[2018-08-07 08:00] LABS: CALCIUM LEVEL 8.8 MG/DL (8.8-10.2); CREATININE FOR GFR 1.05 MG/DL (0.55-1.30); GLOMERULAR FILTRATION RATE 53.7 (>32); POTASSIUM SERUM 4.1 MEQ/L (3.5-5.1)
[2018-08-07] MEDS: ROSUVASTATIN 10 MG TAB (CRESTOR) PO SCH (09:25)
[2018-08-07] MEDS: LEVOTHYROXINE 88MCG TABLET (0.088 MG) PO SCH (09:25)
--- NOTE | 2018-08-07 13:05 | DS.PDOC ---
Discharge Summary General Date of Admission Aug 04, 2018 at 17:13 Date of Discharge 08/07/18 Discharge Summary PROCEDURES PERFORMED DURING STAY: None. ADMITTING/DISCHARGE DIAGNOSES: Recurrent syncopal episodes Hypothyroidism Hypertension Dyslipidemia Chronic lower back pain COMPLICATIONS/CHIEF COMPLAINT: Syncope. HISTORY OF PRESENT ILLNESS: . 78-year-old female with past medical history of hypertension, dyslipidemia, hypothyroidism, chronic lower back pain, and recurrent syncope status post loop recorder implantation in November 2016 presented to the ER with a chief complaint of a syncopal episode. Apparently, the patient [place] when she had a witnessed syncopal episode and fell off of the tractor. She denied any prodromal symptoms of lightheadedness, dizziness, chest pain, palpitations, abdominal pain, or any nausea/vomiting/diarrhea. The patient's history was limited as she stated that she did not recollect the events that led her to syncopized, fall, and end up in the hospital. She does state that she has had similar events over the last several years. The patient was admitted to the hospitalist service for further evaluation and management. During hospitalization, the patient did not have any significant positives on telemetry. A CT scan of the head revealed no acute findings. Orthostatic blood pressure readings were also negative. An MRI/MRA of the brain, and MRI of the carotid arteries also had no acute findings. She did not have any further events while she was hospitalized. I did obtain records from the patient's multimedia producer's office (Dr. Pete), and it appears that her last loop recorder device check was on 07/24/2018 and did not reveal any acute findings. I did speak to Dr. Pete on 08/06 and discussed Mrs. Mario's case in depth, and inquired about another loop recorder device check given her most recent episode. He did follow-up with the device used equipment sales representative who was not in the area but could remotely access the patient's loop recorder when the patient got home. A scheduled phone call/follow-up with the loop recorder device used equipment sales representative at 1 PM has been set up on the day of discharge.Dr. Pete will then review the information and scheduled follow up with the patient accordingly. This was discussed with the patient and her daughter who agree with the above plan, and have verbalized understanding of the same. I've advised the patient to follow-up with her multimedia producer as scheduled, and with her PCP within 7 days. She is to return to the ER for any acute emergencies. DISCHARGE MEDICATIONS: Please see below. ALLERGIES: Please see below. PHYSICAL EXAMINATION ON DISCHARGE: VITAL SIGNS: Please see below. General Exam: Positive: Alert, Cooperative, No Acute Distress ENT Exam: Positive: Mucous membr. moist/pink Neck Exam: Negative: JVD Chest Exam: Positive: Clear to auscultation, Normal air movement Heart Exam: Positive: Rate Normal, Normal S1, Normal S2 Abdomen Exam: Positive: Soft; Negative: Tenderness Extremity Exam: Negative: Tenderness, Swelling Neuro Exam: Positive: Normal Speech, Strength at 5/5 X4 ext, Normal Tone, Sensation Intact, Cranial Nerves 3-12 NL Psych Exam: Positive: Oriented x 3 LABORATORY DATA: Please see below. IMAGING: EXAM: CT Head Without Contrast EXAM DATE/TIME: 08/04/2018 5:34 PM CLINICAL HISTORY: 78 years old, female; Injury or trauma; Fall; Initial encounter; Concussion / head injury; Consciousness not specified TECHNIQUE: Imaging protocol: Axial computed tomography images of the head/brain without contrast. Radiation optimization: All CT scans at this facility use at least one of these dose optimization techniques: automated exposure control; mA and/or kV adjustment per patient size (includes targeted exams where dose is matched to clinical indication); or iterative reconstruction. COMPARISON: CT Head without contrast 03/25/2018 11:48 PM FINDINGS: Brain: There is no evidence for an acute large vessel territorial infarct, intracranial hemorrhage, mass, mass effect, or herniation. There are non-specific foci of low attenuation in the periventricular and subcortical white matter, which are likely the sequela of chronic small vessel ischemic injury and are similar in appearance compared to the prior CT scan on 03/25/2018. Brainstem: Unremarkable. Midline shift: There is no midline shift. Ventricles: The ventricles are mildly to moderately dilated in proportion to the sulci, which is compatible with mild to moderate generalized cerebral volume loss that is similar in appearance compared to the prior CT scan on 03/25/2018. Bones/joints: Unremarkable. No acute fracture. Sinuses: Visualized sinuses are unremarkable. No acute sinusitis. Mastoid air cells: Visualized mastoid air cells are unremarkable. No mastoid effusion. Soft tissues: There is mild soft tissue swelling and edema along the left anterior aspect of the head (images 3-9 of the axial series 201). Vasculature: There are atherosclerotic calcifications of the intracranial portion of the internal carotid arteries. IMPRESSION: 1. Soft tissue swelling along the left anterior aspect of the head. 2. Intact calvarium. No acute intracranial hemorrhage or acute intracranial process. 3. Periventricular and subcortical white matter changes, which are likely the sequela of chronic small vessel ischemic injury and are similar in appearance compared to the prior CT scan on 03/25/2018. EXAM: CT Cervical Spine Without Contrast EXAM DATE/TIME: 08/04/2018 5:34 PM CLINICAL HISTORY: 78 years old, female; Injury or trauma; Fall; Initial encounter; Blunt trauma TECHNIQUE: Imaging protocol: Axial computed tomography images of the cervical spine without contrast. Coronal and sagittal reformatted images were created and reviewed. Radiation optimization: All CT scans at this facility use at least one of these dose optimization techniques: automated exposure control; mA and/or kV adjustment per patient size (includes targeted exams where dose is matched to clinical indication); or iterative reconstruction. COMPARISON: CT Spine,cervical w/o contrast 03/25/2018 12:20 PM The report from this study was not available for review at the time of this interpretation. FINDINGS: Vertebrae: The alignment of the cervical spine is within normal limits. The atlantooccipital alignment is normal. The atlantoaxial alignment is normal. There is no fracture or subluxation. The vertebral body heights are preserved. There is no cervical rib. C2-C3: The disc height is preserved. No disc herniation, spinal canal stenosis, or neural foraminal stenosis is identified. The facet joints are normal. C3-C4: The disc height is preserved. No disc herniation, spinal canal stenosis, or neural foraminal stenosis is identified. There is mild osteoarthritis of the left facet joint. C4-C5: The disc height is preserved. No disc herniation, spinal canal stenosis, or neural foraminal stenosis is identified. The facet joints are normal. C5-C6: The disc height is preserved. No disc herniation, spinal canal stenosis, or neural foraminal stenosis is identified. There is mild osteoarthritis of the left facet joint. C6-C7: The disc height is preserved. No disc herniation, spinal canal stenosis, or neural foraminal stenosis is identified. The facet joints are normal. There are endplate spurs anteriorly. C7-T1: The disc height is preserved. No disc herniation, spinal canal stenosis, or neural foraminal stenosis is identified. The facet joints are normal. T1-T2: The disc height is preserved. No disc herniation, spinal canal stenosis, or neural foraminal stenosis is identified. There is mild osteoarthritis of the right facet joint. Soft tissues: Unremarkable. No soft tissue fluid collection is noted. Prevertebral Space: No prevertebral soft tissue swelling is noted. Vasculature: There are atherosclerotic calcifications of the left carotid bulb and the right proximal internal carotid artery. Lungs: There are mild centrilobular and paraseptal emphysematous changes in the imaged lung apices. IMPRESSION: No fracture or subluxation in the cervical spine. Of bilateral humerus four views History: Trauma Right humerus There is no acute fracture or dislocation. There is moderate narrowing of the acromioclavicular joint space with associated osteophyte formation. Impression impression: There is no acute fracture or dislocation. Left humerus There is no acute fracture or dislocation. There is mild narrowing of the acromioclavicular joint space. Impression: There is no acute fracture or dislocation. Right hand four views History: Trauma There is no acute fracture or dislocation. There is narrowing of the navicular greater multangular and greater multangular first metacarpal joint space, and second through fourth metacarpal phalangeal joint spaces . Osteophytes are present at the greater multangular first metacarpal joint space. The remaining joint spaces are normal in appearance. Impression: There is no acute fracture or dislocation. MRA CAROTIDS WITHOUT AND WITH CONTRAST: HISTORY: Syncope. CONTRAST: ProHance 12 mL. Unenhanced 2D and 3D and contrast enhanced MR angiography were performed at the level of the carotid bifurcations. The distal common carotid arteries and origins of the external and internal carotid arteries are normal. The vertebral arteries are equal in size and patent. There are no atherosclerotic lesions. IMPRESSION: Normal MRA carotids. MR BRAIN WITHOUT CONTRAST: HISTORY: Syncope. COMPARISON: CT 08/04/2018 Areas of increased signal intensity on T2 weighted images are present in the periventricular and subcortical white matter. This represents small vessel ischemic disease. There is no intraparenchymal hemorrhage, infarct, mass or midline shift. The ventricular system and cortical sulci are dilated consistent with mild volume loss. There is no extracerebral collection. The sinuses are clear. IMPRESSION:1. Small vessel ischemic disease. 2. Mild volume loss. MRA BRAIN WITHOUT CONTRAST: HISTORY: Syncope. COMPARISON: 03/25/2018 3-D [id number] MR angiography was performed at the level of the [place]. There is no aneurysm or arteriovenous malformation. Mild atherosclerotic disease involves the cavernous internal carotid arteries. Major intracranial vessels are patent. The vertebral arteries are equal in size. IMPRESSION: Atherosclerotic disease as described above. PROGNOSIS: Fair ACTIVITY: As tolerated. DIET: 2 g low sodium diet DISCHARGE PLAN: DISPOSITION: 01 Home, Self-Care. DISCHARGE INSTRUCTIONS: Follow-up with PCP and cardiology as noted above. Return to the ER for any acute emergencies DISCHARGE CONDITION: Stable. TIME SPENT ON DISCHARGE: Greater than 30 minutes. Vital Signs/I&Os Vital Signs Date Time Temp Pulse Resp B/P (MAP) Pulse Ox O2 Delivery O2 Flow Rate FiO2 08/07/18 07:54 142/82 08/07/18 06:00 98.5 54 18 95 08/06/18 06:00 1.0 08/04/18 22:36 Room Air I&O- Last 24 Hours up to 6 AM 08/07/18 06:00 Intake Total 1380 ml Output Total 1400 ml Balance -20 ml Laboratory Data Labs 24H Laboratory Tests 2 08/07/18 07:18: Nucleated Red Blood Cells % (auto) 0.0, Anion Gap 5L, Glomerular Filtration Rate 53.7, Blood Urea Nitrogen 25H, Creatinine 1.05, Sodium Level 142, Potassium Level 4.1, Chloride Level 112H, Carbon Dioxide Level 25, Calcium Level 8.8 CBC/BMP Laboratory Tests 08/07/18 07:18 Red Blood Count 4.28, Mean Corpuscular Volume 93.7, Mean Corpuscular Hemoglobin 30.6, Mean Corpuscular Hemoglobin Concent 32.7, Red Cell Distribution Width 13.3, Calcium Level 8.8 Discharge Medications Scheduled Aspirin (Aspirin EC) 81 Mg Tab, 81 MG PO QHS, (Reported) Levothyroxine Sodium (Levothyroxine Sodium) 88 Mcg Tab, 88 MCG PO QAM, ( Reported) Losartan Potassium (Losartan Potassium) 25 Mg Tab, 25 MG PO DAILY, (Reported) Magnesium Oxide (Magnesium Oxide) 400 Mg Tab, 400 MG PO QHS, (Reported) [place]-3/Dha/Epa/Fish Oil (Fish Oil EC 1,000 mg Softgel) 1 Cap Cap, 1 CAP PO DAILY, (Reported) Rosuvastatin Calcium (Rosuvastatin Calcium) 5 Mg Tab, 5 MG PO Q2D, (Reported) Scheduled PRN Naproxen Sodium (Naproxen Sodium ER) 500 Mg Tab, 500 MG PO BID PRN for BACK PAIN, (Reported) Allergies Coded Allergies: baclofen (Verified Allergy, Mild, 08/04/18) hydrocodone (Verified Allergy, Mild, 08/04/18) codeine (Verified Allergy, Unknown, 08/04/18) NOAH RAMIREZ MD August 07, 2018 13:05
== END 2018-08-07 11:30 | disposition home or self-care (01) ==
LOC: M ED 17:12 → M ED INP 17:13 → M MSPAV 22:58
PROVIDERS: ADMIT Internal Medicine; ATTEND Internal Medicine
DX: R55 Syncope and collapse (principal); S09.90XA Unspecified injury of head, initial encounter; W17.89XA Other fall from one level to another, initial encounter; E03.9 Hypothyroidism, unspecified; I10 Essential (primary) hypertension; E78.49 Other hyperlipidemia; M54.5 Low back pain; Z79.82 Long term (current) use of aspirin; Z88.5 Allergy status to narcotic agent; Y92.89 Other specified places as the place of occurrence of the external cause; Y99.9 Unspecified external cause status; Y93.89 Activity, other specified
CPT/HCPCS: 36415; 70450; 70544; 70549; 70551; 72125; 73060; 73130; 80048; 82550; 82553; 83735; 84439; 84443; 84484; 85025; 85027; 85610; 93005; 93041; 94760; 96361; 96374; 97161; 99285; A9576; G0378; J2060

== ENCOUNTER → 2019-02-24 | Outpatient (CLI) | payer MEDICARE ==
[~2019-02-24] MED LIST changes: -ROSU5TAB4 PO; +ROSU5TAB5 PO
== END ==
LOC: M SMT 10:34
PROVIDERS: ATTEND Obstetrics & Gynecology
DX: N83.202 Unspecified ovarian cyst, left side (principal)

== ENCOUNTER → 2019-03-05 | Outpatient (CLI) | payer MEDICARE ==
--- NOTE | 2019-03-05 14:20 | REP ---
Clinical: Follow up ovarian cyst. Comparison: 05/01/2018. Technique: Transabdominal pelvic ultrasound with color Doppler evaluation of the ovaries. Findings: Bladder is normal and measures 6.8 x 5.6 x 3.8 cm. Anteverted uterus measures 6.3 x 1.7 x 2.7 cm. Endometrial complex measures 2.4 mm thickness. No discrete uterine or endometrial abnormality noted. Right ovary is not visualized. The left ovary measures 8.7 x 7.4 x 7.2 cm (RI 0.61) and includes 7.9 x 6.5 x 6.0 cm cyst unchanged from prior examination. Impression: 1. Large stable left ovarian cyst. Electronically Signed by Bridger George MD 03/05/2019 02:12 P
== END ==
LOC: M RAD 12:57
PROVIDERS: ATTEND Obstetrics & Gynecology
DX: N83.202 Unspecified ovarian cyst, left side (principal); N85.4 Malposition of uterus

== ENCOUNTER → 2019-04-23 | Outpatient (CLI) | payer MEDICARE ==
--- NOTE | 2019-04-24 03:38 | REP ---
Clinical: Intracranial symptoms . Technique: Leon scale and color Doppler evaluation using linear high frequency transducer Findings: Two-dimensional leon scale and color images demonstrate normal arterial lumen with laminar flow and no appreciable narrowing. Color Doppler interrogation demonstrates normal arterial wave patterns and velocities with no significant spectral broadening. Normal flow direction is appreciated in the bilateral vertebral arteries. RIGHT (cm/s) LEFT (cm/s) ICA peak systolic velocity 78.8 93.3 ICA diastolic velocity 12.6 22.2 ECA peak systolic velocity 91.3 135.0 CCA peak systolic velocity 94.2 133.0 ICA/CCA ratio 0.84 0.70 Impression: No hemodynamically significant areas of narrowing or stenosis appreciated. Based on set standards narrowing falls within the normal range. Electronically Signed by Bridger George MD 04/24/2019 03:30 A
== END ==
LOC: M RAD 13:19
PROVIDERS: ATTEND Internal Medicine
DX: I65.29 Occlusion and stenosis of unspecified carotid artery (principal)

== ENCOUNTER → 2021-09-29 | Outpatient (CLI) | payer MEDICARE ==
[~2021-09-29] MED LIST changes: +LOSA25TA13 PO; -LOSA25TA14 PO; +LOSA50TA28 PO; -LOSA50TA88 PO
== END ==
LOC: M RAD 13:51
PROVIDERS: ATTEND Internal Medicine
DX: G45.9 Transient cerebral ischemic attack, unspecified (principal)

== ENCOUNTER 2021-10-18 13:12 | Emergency (ER) | payer MEDICARE ==
[~2021-10-18] VITALS: Ht 157.5 cm; Wt 72.7 kg
[2021-10-18] MEDS ORDERED: ALBU8.5H (15:48)
[2021-10-18 16:42] LABS: BASO # 0.1 10^3/uL (0.0-0.2); BASO % 0.7 % (0.0-1.0); EOS # 0.2 10^3/uL (0.0-0.5); EOS % 1.5 % (0.0-3.0); HEMATOCRIT 41.4 % (36.0-47.0); HEMOGLOBIN 13.3 g/dl (12.0-15.5); LYMPH % 17.2 % (24.0-44.0); MEAN CORPUSCULAR HGB CONC 32.1 g/dl (32.0-36.5); MEAN CORPUSCULAR VOLUME 93.2 fl (80.0-96.0); MONO # 0.9 10^3/uL (0.0-0.8); MONO % 7.2 % (2.0-8.0); NEUTROPHILS # 8.6 10^3/uL (1.5-8.5); PLATELET COUNT, AUTOMATED 212 10^3/uL (150-450); RED BLOOD COUNT 4.44 10^6/uL (4.00-5.40); WHITE BLOOD COUNT 11.8 10^3/uL (4.0-10.0)
[2021-10-18 17:11] LABS: CALCIUM LEVEL 10.3 MG/DL (8.8-10.2); CREATININE FOR GFR 1.18 MG/DL (0.55-1.30); GLOMERULAR FILTRATION RATE 46.6 (>32); POTASSIUM SERUM 4.6 MEQ/L (3.5-5.1)
[2021-10-18 17:17] LABS: CK-MB VALUE MASS 2.4 NG/ML (<3.6); MB/CK RELATIVE INDEX 1.68 (< OR =4)
[2021-10-18] MEDS ORDERED: ACETAMINOPHEN 500 MG TAB PO ONE (17:50)
[2021-10-18 17:54] LABS: FREE THYROXINE INDEX 2.5 % (1.3-4.8); THYROID STIMULATING HORMONE 0.353 uIU/ML (0.358-3.740); THYROXINE (T4) 7.2 UG/DL (4.5-12.0)
[2021-10-18] MEDS ORDERED: BACITRACIN OINTMENT 30GM TUBE TOP STA (18:02)
[2021-10-18] MEDS ORDERED: LIDOCAINE 1% MDV 20ML VIAL SC ONE (18:05)
[2021-10-18] MEDS ORDERED: BOOSTRIX/ADACEL VACCINE (DIPHTH/PERTUSS/ACELL/TETANUS) 0.5ML SYR IM ONE (19:15)
[2021-10-18] MEDS ORDERED: CEPHALEXIN 500 MG CAP PO ONE (19:15)
[2021-10-18] MEDS ORDERED: CEPH500C PO ×2 (19:17→19:51)
[2021-10-18 19:30] VITALS: BP 172/98
== END 2021-10-18 19:55 | disposition home or self-care (01) ==
LOC: M ED 13:12
DX: S41.112A Laceration without foreign body of left upper arm, initial encounter (principal); W22.8XXA Striking against or struck by other objects, initial encounter; Y92.018 Other place in single-family (private) house as the place of occurrence of the external cause; I10 Essential (primary) hypertension; E03.9 Hypothyroidism, unspecified; E78.5 Hyperlipidemia, unspecified; Z88.1 Allergy status to other antibiotic agents; Z88.5 Allergy status to narcotic agent; Z79.899 Other long term (current) drug therapy; Z79.890 Hormone replacement therapy; Z79.82 Long term (current) use of aspirin

== ENCOUNTER → 2022-05-17 | Outpatient (REF) | payer MEDICARE ==
[~2022-05-17] MED LIST changes: +ALBU8.5H; +CEPH500C PO; +FISH10005 PO; -FISH7.5C PO
== END ==
LOC: M LAB REF 16:17
PROVIDERS: ATTEND Internal Medicine
DX: R41.81 Age-related cognitive decline (principal); N39.0 Urinary tract infection, site not specified; M19.141 Post-traumatic osteoarthritis, right hand; S22.41XB Multiple fractures of ribs, right side, initial encounter for open fracture

== ENCOUNTER → 2022-10-13 | Outpatient (CLI) | payer MEDICARE | LOC: M PLARAD 13:45 | PROVIDERS: ATTEND Internal Medicine | DX: I69.851 Hemiplegia and hemiparesis following other cerebrovascular disease affecting right dominant side (principal) ==

== ENCOUNTER → 2022-11-10 | Outpatient (CLI) | payer MEDICARE | LOC: M RAD 14:50 | PROVIDERS: ATTEND Internal Medicine | DX: I69.851 Hemiplegia and hemiparesis following other cerebrovascular disease affecting right dominant side (principal) ==

== ENCOUNTER → 2022-12-21 | Outpatient (CLI) | payer MEDICARE | LOC: M PLAIMG 10:31 | PROVIDERS: ATTEND Nurse Practitioner Family | DX: S04.50XA Injury of facial nerve, unspecified side, initial encounter (principal); X58.XXXA Exposure to other specified factors, initial encounter; Y99.9 Unspecified external cause status; Y92.9 Unspecified place or not applicable ==

== ENCOUNTER → 2023-10-02 | Outpatient (REF) | payer MEDICARE ==
[~2023-10-02] MED LIST changes: +ROSU5TAB40 PO; -ROSU5TAB5 PO
[2023-10-03 11:27] LABS: APPEARANCE, URINE HAZY (CLEAR); BACTERIA, URINE AUTO 1+ (NEGATIVE); BILIRUBIN, URINE AUTO NEGATIVE (NEGATIVE); BLOOD, URINE BLOOD NEGATIVE (NEGATIVE); COLOR, URINE YELLOW (YELLOW); GLUCOSE, URINE (UA) AUTO NEGATIVE (NEGATIVE); KETONE, URINE AUTO NEGATIVE (NEGATIVE); LEUKOCYTE ESTERASE, URINE AUTO 3+ (NEGATIVE); MUCUS, URINE SMALL (NEGATIVE); NITRITE, URINE AUTO POSITIVE (NEGATIVE); PROTEIN, URINE AUTO NEGATIVE (NEGATIVE); RBC, URINE AUTO 5 /HPF (0-3); SPECIFIC GRAVITY URINE AUTO 1.008 (1.002-1.035); SQUAMOUS EPITHELIAL CELL UR AU 1 /HPF (0-6); UROBILINOGEN, URINE AUTO 0.2 mg/dL (0.0-2.0); WBC, URINE AUTO 59 /HPF (0-3)
== END ==
LOC: M LAB REF 10:44
PROVIDERS: ATTEND Internal Medicine
DX: R30.0 Dysuria (principal)

== ENCOUNTER → 2023-10-10 | Outpatient (REF) | payer MEDICARE | LOC: M LAB REF 16:30 | PROVIDERS: ATTEND Physician Assistant Medical | DX: I50.32 Chronic diastolic (congestive) heart failure (principal) ==

== ENCOUNTER → 2023-10-30 | Outpatient (REF) | payer MEDICARE ==
[2023-10-30 18:08] LABS: APPEARANCE, URINE HAZY (CLEAR); BACTERIA, URINE AUTO 1+ (NEGATIVE); BILIRUBIN, URINE AUTO NEGATIVE (NEGATIVE); BLOOD, URINE BLOOD NEGATIVE (NEGATIVE); CALCIUM OXALATE CRYSTALS LARGE; COLOR, URINE AMBER (YELLOW); GLUCOSE, URINE (UA) AUTO NEGATIVE (NEGATIVE); KETONE, URINE AUTO NEGATIVE (NEGATIVE); LEUKOCYTE ESTERASE, URINE AUTO 1+ (NEGATIVE); MUCUS, URINE SMALL (NEGATIVE); NITRITE, URINE AUTO NEGATIVE (NEGATIVE); PROTEIN, URINE AUTO 1+ mg/dL (NEGATIVE); RBC, URINE AUTO 0 /HPF (0-3); SPECIFIC GRAVITY URINE AUTO 1.016 (1.002-1.035); SQUAMOUS EPITHELIAL CELL UR AU 3 /HPF (0-6); UROBILINOGEN, URINE AUTO 0.2 mg/dL (0.0-2.0); WBC, URINE AUTO 8 /HPF (0-3)
== END ==
LOC: M SMT 17:06
PROVIDERS: ATTEND Physician Assistant
DX: R30.0 Dysuria (principal)

== ENCOUNTER → 2023-12-19 | Outpatient (REF) | payer MEDICARE ==
[2023-12-19 19:58] LABS: APPEARANCE, URINE HAZY (CLEAR); BACTERIA, URINE AUTO 1+ (NEGATIVE); BILIRUBIN, URINE AUTO NEGATIVE (NEGATIVE); BLOOD, URINE BLOOD NEGATIVE (NEGATIVE); COLOR, URINE YELLOW (YELLOW); GLUCOSE, URINE (UA) AUTO NEGATIVE (NEGATIVE); KETONE, URINE AUTO NEGATIVE (NEGATIVE); LEUKOCYTE ESTERASE, URINE AUTO 2+ (NEGATIVE); MUCUS, URINE SMALL (NEGATIVE); NITRITE, URINE AUTO POSITIVE (NEGATIVE); PROTEIN, URINE AUTO NEGATIVE (NEGATIVE); RBC, URINE AUTO 3 /HPF (0-3); SPECIFIC GRAVITY URINE AUTO 1.013 (1.002-1.035); SQUAMOUS EPITHELIAL CELL UR AU 4 /HPF (0-6); UROBILINOGEN, URINE AUTO 0.2 mg/dL (0.0-2.0); WBC, URINE AUTO 49 /HPF (0-3)
== END ==
LOC: M LAB REF 19:30
PROVIDERS: ATTEND Internal Medicine
DX: R30.0 Dysuria (principal)

== ENCOUNTER 2024-01-04 10:49 | Observation (INO) | payer MEDICARE ==
[2024-01-04] MEDS: LIDOCAINE 2% 5ML JELLY UROJET TOP ONE (11:15)
[2024-01-04 11:40] LABS: APPEARANCE, URINE HAZY (CLEAR); BACTERIA, URINE AUTO 2+ (NEGATIVE); BILIRUBIN, URINE AUTO NEGATIVE (NEGATIVE); BLOOD, URINE BLOOD NEGATIVE (NEGATIVE); COLOR, URINE YELLOW (YELLOW); GLUCOSE, URINE (UA) AUTO NEGATIVE (NEGATIVE); KETONE, URINE AUTO NEGATIVE (NEGATIVE); LEUKOCYTE ESTERASE, URINE AUTO NEGATIVE (NEGATIVE); MUCUS, URINE SMALL (NEGATIVE); NITRITE, URINE AUTO NEGATIVE (NEGATIVE); PROTEIN, URINE AUTO NEGATIVE (NEGATIVE); RBC, URINE AUTO 0 /HPF (0-3); SPECIFIC GRAVITY URINE AUTO 1.009 (1.002-1.035); SQUAMOUS EPITHELIAL CELL UR AU 0 /HPF (0-6); UROBILINOGEN, URINE AUTO 0.2 mg/dL (0.0-2.0); WBC, URINE AUTO 1 /HPF (0-3)
[2024-01-04 11:44] LABS: BASO % 0.3 % (0.0-1.0); EOS # 0.1 10^3/uL (0.0-0.5); HEMOGLOBIN 14.3 g/dl (12.0-15.5); LYMPH # 0.9 10^3/uL (1.5-5.0); LYMPH % 6.9 % (24.0-44.0); MEAN CORPUSCULAR HEMOGLOBIN 30.9 pg (27.0-33.0); MEAN CORPUSCULAR HGB CONC 32.5 g/dl (32.0-36.5); MONO # 0.7 10^3/uL (0.0-0.8); MONO % 5.4 % (2.0-8.0); NEUTROPHILS # 11.7 10^3/uL (1.5-8.5); NEUTROPHILS % 85.8 % (36.0-66.0); PLATELET COUNT, AUTOMATED 254 10^3/uL (150-450); RED BLOOD COUNT 4.63 10^6/uL (4.00-5.40); WHITE BLOOD COUNT 13.6 10^3/uL (4.0-10.0)
[2024-01-04 11:51] LABS: CK-MB VALUE MASS < 1.0 NG/ML (<3.6)
[2024-01-04 11:53] LABS: ALBUMIN 3.7 G/DL (3.2-5.2); ALKALINE PHOSPHATASE 105 U/L (46-116); ALT/SGPT 27 U/L (7.0-40); AST/SGOT 32 U/L (<34); BILIRUBIN,DIRECT 0.2 MG/DL (<0.4); BILIRUBIN,TOTAL 0.9 MG/DL (0.3-1.2); BLOOD UREA NITROGEN 19 MG/DL (9-23); CALCIUM LEVEL 10.4 MG/DL (8.3-10.6); CARBON DIOXIDE LEVEL 28 MMOL/L (20-31); CHLORIDE LEVEL 107 MMOL/L (98-107); CREATININE FOR GFR 1.25 MG/DL (0.55-1.30); GLOMERULAR FILTRATION RATE 43.4 (>32); GLUCOSE, FASTING 144 MG/DL (74-106); POTASSIUM SERUM 4.7 MMOL/L (3.5-5.1); SODIUM LEVEL 139 MMOL/L (136-145)
[2024-01-04] MEDS ORDERED: NITR100C2 PO (11:54)
[2024-01-04] MEDS ORDERED: LEVO50TA5 PO (11:54)
[2024-01-04] MEDS ORDERED: SPIR-10 PO (11:54)
[2024-01-04] MEDS ORDERED: ROSU10TA61 PO (11:54)
[2024-01-04 11:55] LABS: THYROID STIMULATING HORMONE 10.499 uIU/ML (0.55-4.78)
[2024-01-04 12:06] LABS: CPK CREATINE PHOSPHOKINASE 80 U/L (34-145); MB/CK RELATIVE INDEX 1.25 (< OR =4)
[2024-01-04] MEDS ORDERED: ISOVUE-370 76% 100ML VIAL As Ordered ONE (12:25)
[2024-01-04] MEDS ORDERED: FURO20TA2 PO (13:17)
[2024-01-04] MEDS ORDERED: NYST1POW9 TOP (13:17)
[2024-01-04] MEDS ORDERED: CLOP75TA2 PO (13:17)
[2024-01-04] MEDS ORDERED: THERTAB52 PO (13:18)
[2024-01-04] MEDS ORDERED: HOME MED LIST COMPLETE! XX SCH (13:20)
[2024-01-04] MEDS ORDERED: LIDOCAINE 1% SDV 5ML VIAL DILUENT ONE (13:45)
[2024-01-04] MEDS ORDERED: cefTRIAXone SOD 1GM VIAL IM ONE (13:45)
[2024-01-04] MEDS: cefTRIAXone SOD 1 GM in D5W MINI-BAG PLUS 50 ML IV ONE (14:20)
[2024-01-04] MEDS: ACETAMINOPHEN *IV* 1,000 MG in IV 1 EA IV ONE (16:04)
[2024-01-04 16:29] LABS: CK-MB VALUE MASS 1.5 NG/ML (<3.6)
[2024-01-04 16:32] LABS: FREE T4 0.88 NG/DL (0.89-1.76); MB/CK RELATIVE INDEX 0.94 (< OR =4)
[2024-01-04 16:34] LABS: FREE T3 2.3 PG/ML (2.3-4.2)
[2024-01-04 16:36] LABS: PROCALCITONIN 0.18 ng/ml
[2024-01-04 16:48] LABS: VITAMIN B12 LEVEL 510 PG/ML (211-911)
[2024-01-04 16:50] LABS: CA19-9 TUMOR MARKER,CARBOHYDRA 17.5 U/ML (<35.0)
[2024-01-04 16:57] LABS: FOLATE > 24.0 NG/ML (>5.4)
[2024-01-04] MEDS ORDERED: PROHANCE 279.3MG/ML 15ML VIAL As Ordered ONE (17:20)
[2024-01-04 18:20] VITALS: BP 120/97; TEMP 97.5; O2SAT 98
[2024-01-04] MEDS: LACTOBACILLUS ACIDOPHILUS CAP (BACID) PO SCH (19:02)
[2024-01-04] MEDS: NS 1,000 ML IV SCH (19:02)
[2024-01-04] MEDS: MULTIVITAMINS/MINERALS THERAP 1 TAB PO SCH (19:02)
[2024-01-04 20:00] VITALS: BP 122/97; TEMP 97.7; O2SAT 96
[2024-01-04] MEDS: ASPIRIN 81MG ENTERIC TABLET PO SCH (21:25)
[2024-01-05 04:00] VITALS: BP 127/55; TEMP 97.5; O2SAT 94
[2024-01-05] MEDS: LEVOTHYROXINE 50MCG TABLET (0.05MG) PO SCH (06:45)
[2024-01-05 06:52] LABS: BASO % 0.4 % (0.0-1.0); EOS # 0.4 10^3/uL (0.0-0.5); EOS % 4.2 % (0.0-3.0); HEMATOCRIT 42.2 % (36.0-47.0); HEMOGLOBIN 14.1 g/dl (12.0-15.5); LYMPH # 1.2 10^3/uL (1.5-5.0); LYMPH % 11.3 % (24.0-44.0); MEAN CORPUSCULAR HEMOGLOBIN 31.3 pg (27.0-33.0); MEAN CORPUSCULAR HGB CONC 33.4 g/dl (32.0-36.5); MEAN CORPUSCULAR VOLUME 93.8 fl (80.0-96.0); MONO # 0.8 10^3/uL (0.0-0.8); MONO % 7.8 % (2.0-8.0); NEUTROPHILS # 7.8 10^3/uL (1.5-8.5); NEUTROPHILS % 75.9 % (36.0-66.0); PLATELET COUNT, AUTOMATED 235 10^3/uL (150-450); WHITE BLOOD COUNT 10.3 10^3/uL (4.0-10.0)
[2024-01-05 07:21] LABS: CALCIUM LEVEL 9.9 MG/DL (8.3-10.6); CREATININE FOR GFR 1.17 MG/DL (0.55-1.30); GLOMERULAR FILTRATION RATE 46.8 (>32); POTASSIUM SERUM 4.2 MMOL/L (3.5-5.1)
[2024-01-05] MEDS: OMEGA-3 1000MG CAPSULE PO SCH (08:52)
[2024-01-05] MEDS: ROSUVASTATIN 10 MG TAB (CRESTOR) PO SCH (08:52)
[2024-01-05] MEDS: CLOPIDOGREL 75 MG TAB PO SCH (08:52)
[2024-01-05] MEDS: LOSARTAN 25 MG TAB PO SCH (08:53)
[2024-01-05] MEDS ORDERED: SPIRONOLACTONE 25 MG TAB PO SCH (09:00)
[2024-01-05] MEDS: FLUBLOK(EGGFREE) TRIVAL(24-25) VACCINE PF 0.5ML SYRINGE 18YRS & OLDER IM.IMMUN ONE (11:09)
[2024-01-05 12:00] VITALS: BP 126/68; TEMP 97.9; O2SAT 95
[2024-01-05] MEDS: cefTRIAXone SOD 1 GM in D5W MINI-BAG PLUS 50 ML IV SCH (14:55)
[2024-01-05 16:32] LABS: AMPHETAMINES LEVEL URINE NEGATIVE (NEGATIVE); BARBITURATES URINE NEGATIVE (NEGATIVE); BENZODIAZEPINES URINE NEGATIVE (NEGATIVE); CANNABINOIDS URINE NEGATIVE (NEGATIVE); COCAINE METABOLITE URINE NEGATIVE (NEGATIVE); METHADONE URINE NEGATIVE (NEGATIVE); OPIATES URINE NEGATIVE (NEGATIVE); PHENCYCLIDINE URINE NEGATIVE (NEGATIVE)
[2024-01-05 21:00] VITALS: BP 131/61; TEMP 98.1; O2SAT 97
[2024-01-06 04:00] VITALS: BP 129/62; TEMP 97.4; O2SAT 97
[2024-01-06 06:06] LABS: BASO % 0.5 % (0.0-1.0); EOS # 0.4 10^3/uL (0.0-0.5); EOS % 5.3 % (0.0-3.0); HEMATOCRIT 39.3 % (36.0-47.0); HEMOGLOBIN 12.9 g/dl (12.0-15.5); LYMPH # 1.4 10^3/uL (1.5-5.0); LYMPH % 18.6 % (24.0-44.0); MEAN CORPUSCULAR HEMOGLOBIN 31.2 pg (27.0-33.0); MEAN CORPUSCULAR HGB CONC 32.8 g/dl (32.0-36.5); MEAN CORPUSCULAR VOLUME 94.9 fl (80.0-96.0); MONO # 0.9 10^3/uL (0.0-0.8); MONO % 11.7 % (2.0-8.0); NEUTROPHILS # 4.8 10^3/uL (1.5-8.5); NEUTROPHILS % 63.5 % (36.0-66.0); PLATELET COUNT, AUTOMATED 220 10^3/uL (150-450); RED BLOOD COUNT 4.14 10^6/uL (4.00-5.40); WHITE BLOOD COUNT 7.5 10^3/uL (4.0-10.0)
[2024-01-06 06:28] LABS: CALCIUM LEVEL 9.2 MG/DL (8.3-10.6); CREATININE FOR GFR 1.1 MG/DL (0.55-1.30); GLOMERULAR FILTRATION RATE 50.3 (>32); POTASSIUM SERUM 4.2 MMOL/L (3.5-5.1)
[2024-01-06 12:00] VITALS: BP 124/62; TEMP 97.5; O2SAT 96
[2024-01-06 20:00] VITALS: BP 129/63; TEMP 97.4; O2SAT 95
[2024-01-07 04:00] VITALS: BP 125/64; TEMP 97.3; O2SAT 96
[2024-01-07 06:07] LABS: BASO % 0.5 % (0.0-1.0); EOS # 0.3 10^3/uL (0.0-0.5); EOS % 4.4 % (0.0-3.0); HEMATOCRIT 39.5 % (36.0-47.0); HEMOGLOBIN 12.8 g/dl (12.0-15.5); LYMPH # 1.5 10^3/uL (1.5-5.0); MEAN CORPUSCULAR HEMOGLOBIN 30.8 pg (27.0-33.0); MEAN CORPUSCULAR HGB CONC 32.4 g/dl (32.0-36.5); MONO # 0.7 10^3/uL (0.0-0.8); MONO % 9.8 % (2.0-8.0); NEUTROPHILS # 4.7 10^3/uL (1.5-8.5); NEUTROPHILS % 63.8 % (36.0-66.0); PLATELET COUNT, AUTOMATED 211 10^3/uL (150-450); RED BLOOD COUNT 4.16 10^6/uL (4.00-5.40); WHITE BLOOD COUNT 7.3 10^3/uL (4.0-10.0)
[2024-01-07 06:33] LABS: CALCIUM LEVEL 9.6 MG/DL (8.3-10.6); CREATININE FOR GFR 1.03 MG/DL (0.55-1.30); GLOMERULAR FILTRATION RATE 54.2 (>32); POTASSIUM SERUM 4.3 MMOL/L (3.5-5.1)
[2024-01-07 12:00] VITALS: BP 118/85; TEMP 97.7; O2SAT 98
[2024-01-07 20:00] VITALS: BP 138/72; TEMP 97; O2SAT 96
[2024-01-07 21:37] LABS: VENOUS BASE EXCESS -2.3 (-2.0-2.0); VENOUS HCO3 22.3 MMOL/L (23.0-27.0); VENOUS O2 SATURATION 92.9 % (60.0-80.0); VENOUS PARTIAL PRESSURE CO2 38.1 mmHg (38.0-50.0); VENOUS PARTIAL PRESSURE O2 62.1 mmHg (30.0-50.0); VENOUS PH 7.386 UNITS (7.330-7.430); VENOUS STANDARD HCO3 22.5 MMOL/L; VENOUS TOTAL CO2 23.5 MMOL/L (24.0-28.0)
[2024-01-07] MEDS: ALBUTEROL 90 MCG/ACT 8GM HFA INHALER INH PRN (21:37)
[2024-01-07 21:42] LABS: BASO # 0.1 10^3/uL (0.0-0.2); BASO % 0.5 % (0.0-1.0); EOS # 0.3 10^3/uL (0.0-0.5); EOS % 2.8 % (0.0-3.0); HEMOGLOBIN 13.8 g/dl (12.0-15.5); LYMPH # 1.7 10^3/uL (1.5-5.0); LYMPH % 16.9 % (24.0-44.0); MEAN CORPUSCULAR HEMOGLOBIN 30.9 pg (27.0-33.0); MEAN CORPUSCULAR HGB CONC 32.9 g/dl (32.0-36.5); MONO # 0.9 10^3/uL (0.0-0.8); NEUTROPHILS # 7.1 10^3/uL (1.5-8.5); NEUTROPHILS % 70.2 % (36.0-66.0); PLATELET COUNT, AUTOMATED 228 10^3/uL (150-450); RED BLOOD COUNT 4.47 10^6/uL (4.00-5.40); WHITE BLOOD COUNT 10.1 10^3/uL (4.0-10.0)
[2024-01-07 22:06] LABS: ALBUMIN 3.5 G/DL (3.2-5.2); BILIRUBIN,TOTAL 0.3 MG/DL (0.3-1.2); CALCIUM LEVEL 10.4 MG/DL (8.3-10.6); CREATININE FOR GFR 1.17 MG/DL (0.55-1.30); GLOMERULAR FILTRATION RATE 46.8 (>32); MAGNESIUM LEVEL 1.8 MG/DL (1.8-2.4); POTASSIUM SERUM 4.2 MMOL/L (3.5-5.1)
[2024-01-07 22:13] LABS: PROCALCITONIN 0.15 ng/ml
[2024-01-08] VITALS (7 sets, daily range): BP systolic 126–148; BP diastolic 66–75; TEMP 97.2–99.3; O2SAT 89–97
[2024-01-08] MEDS: RAMELTEON 8 MG TAB (ROZEREM) PO PRN (00:42)
[2024-01-08] MEDS: NYSTATIN 100,000 UNITS/GM TOPICAL PWD 15GM TOP SCH (00:42)
[2024-01-08 06:26] LABS: BASO # 0.1 10^3/uL (0.0-0.2); BASO % 0.8 % (0.0-1.0); EOS # 0.2 10^3/uL (0.0-0.5); EOS % 2.6 % (0.0-3.0); HEMATOCRIT 38.7 % (36.0-47.0); HEMOGLOBIN 12.9 g/dl (12.0-15.5); LYMPH # 1.5 10^3/uL (1.5-5.0); LYMPH % 17.3 % (24.0-44.0); MEAN CORPUSCULAR HEMOGLOBIN 30.9 pg (27.0-33.0); MEAN CORPUSCULAR HGB CONC 33.3 g/dl (32.0-36.5); MEAN CORPUSCULAR VOLUME 92.6 fl (80.0-96.0); MONO # 0.8 10^3/uL (0.0-0.8); MONO % 9.6 % (2.0-8.0); NEUTROPHILS # 5.9 10^3/uL (1.5-8.5); NEUTROPHILS % 69.1 % (36.0-66.0); PLATELET COUNT, AUTOMATED 217 10^3/uL (150-450); RED BLOOD COUNT 4.18 10^6/uL (4.00-5.40); WHITE BLOOD COUNT 8.6 10^3/uL (4.0-10.0)
[2024-01-08 07:04] LABS: CALCIUM LEVEL 9.6 MG/DL (8.3-10.6); CREATININE FOR GFR 1.01 MG/DL (0.55-1.30); GLOMERULAR FILTRATION RATE 55.5 (>32); POTASSIUM SERUM 4.3 MMOL/L (3.5-5.1)
[2024-01-08] MEDS ORDERED: CEFD1CAP9 PO (11:15)
[2024-01-09] VITALS (9 sets, daily range): BP systolic 108–132; BP diastolic 58–88; TEMP 97.5–98.1; O2SAT 85–95
[2024-01-09] MEDS ORDERED: MIRALAX *UNIT DOSE* 17GM PACKET PO PRN (20:55)
[2024-01-10 03:50] VITALS: BP 120/68; TEMP 97.3; O2SAT 92
[2024-01-10] MEDS: SENNA 8.6 MG TAB (SENOKOT) PO PRN (06:15)
[2024-01-10 12:00] VITALS: BP 128/72; TEMP 97.7; O2SAT 91
[2024-01-10 20:08] VITALS: BP 148/58; TEMP 97.7; O2SAT 95
[2024-01-11 03:41] VITALS: BP 109/53; TEMP 97.7; O2SAT 91
[2024-01-11 08:13] VITALS: BP 136/70
[2024-01-11 08:19] LABS: BASO # 0.1 10^3/uL (0.0-0.2); BASO % 0.9 % (0.0-1.0); EOS # 0.2 10^3/uL (0.0-0.5); EOS % 2.1 % (0.0-3.0); HEMATOCRIT 39.4 % (36.0-47.0); HEMOGLOBIN 12.9 g/dl (12.0-15.5); LYMPH # 1.9 10^3/uL (1.5-5.0); LYMPH % 17.6 % (24.0-44.0); MEAN CORPUSCULAR HEMOGLOBIN 30.9 pg (27.0-33.0); MEAN CORPUSCULAR HGB CONC 32.7 g/dl (32.0-36.5); MEAN CORPUSCULAR VOLUME 94.3 fl (80.0-96.0); MONO % 9.5 % (2.0-8.0); NEUTROPHILS # 7.3 10^3/uL (1.5-8.5); PLATELET COUNT, AUTOMATED 242 10^3/uL (150-450); RED BLOOD COUNT 4.18 10^6/uL (4.00-5.40); WHITE BLOOD COUNT 10.5 10^3/uL (4.0-10.0)
[2024-01-11 08:49] LABS: CALCIUM LEVEL 9.7 MG/DL (8.3-10.6); CREATININE FOR GFR 1.06 MG/DL (0.55-1.30); GLOMERULAR FILTRATION RATE 52.4 (>32); MAGNESIUM LEVEL 1.8 MG/DL (1.8-2.4); POTASSIUM SERUM 4.4 MMOL/L (3.5-5.1)
[2024-01-11] MEDS ORDERED: RISATAB3 PO (12:46)
== END 2024-01-11 17:25 | disposition home health service (06) ==
LOC: EDBD 10:49 → M ED 10:49 → M ED INP 10:50 → M MSPAV 18:22
PROVIDERS: ADMIT General Practice; ATTEND Internal Medicine
DX: R41.82 Altered mental status, unspecified (principal); F03.90 Unspecified dementia, unspecified severity, without behavioral disturbance, psychotic disturbance, mood disturbance, and anxiety; G93.41 Metabolic encephalopathy; R82.998 Other abnormal findings in urine; I69.351 Hemiplegia and hemiparesis following cerebral infarction affecting right dominant side; I10 Essential (primary) hypertension; E78.5 Hyperlipidemia, unspecified; E03.9 Hypothyroidism, unspecified; Z87.440 Personal history of urinary (tract) infections; R26.81 Unsteadiness on feet; R50.9 Fever, unspecified; R35.0 Frequency of micturition; R39.15 Urgency of urination; R10.9 Unspecified abdominal pain; K43.6 Other and unspecified ventral hernia with obstruction, without gangrene; A41.9 Sepsis, unspecified organism; R00.0 Tachycardia, unspecified; D41.02 Neoplasm of uncertain behavior of left kidney; N94.89 Other specified conditions associated with female genital organs and menstrual cycle; N83.202 Unspecified ovarian cyst, left side; R55 Syncope and collapse; R06.2 Wheezing; R06.00 Dyspnea, unspecified; R09.89 Other specified symptoms and signs involving the circulatory and respiratory systems; R05.8 Other specified cough; Z82.49 Family history of ischemic heart disease and other diseases of the circulatory system; Z88.5 Allergy status to narcotic agent; Z88.8 Allergy status to other drugs, medicaments and biological substances; Z79.899 Other long term (current) drug therapy; Z79.82 Long term (current) use of aspirin; Z79.02 Long term (current) use of antithrombotics/antiplatelets; Z79.890 Hormone replacement therapy; Z23 Encounter for immunization
CPT/HCPCS: 36415; 51701; 70450; 71045; 71275; 74177; 74183; 76856; 80048; 80053; 80076; 80307; 81001; 82105; 82140; 82378; 82550; 82553; 82607; 82746; 82803; 83605; 83735; 83880; 84145; 84439; 84443; 84481; 84484; 85025; 85652; 86140; 86301; 86304; 87040; 87486; 87581; 87633; 87798; 90673; 92610; 93005; 93041; 93976; 94640; 94760; 96365; 96366; 96367; 96376; 97116; 97161; 97165; 97535; 99285; A9576; G0008; G0378; J0131; J0696; Q9967

== ENCOUNTER → 2024-01-31 | Outpatient (REF) | payer MEDICARE ==
[~2024-01-31] MED LIST changes: +CEFD1CAP9 PO; +CLOP75TA2 PO; +FURO20TA2 PO; +LEVO50TA5 PO; +NITR100C2 PO; +NYST1POW9 TOP; +RISATAB3 PO; +ROSU10TA61 PO; +SPIR-10 PO; +THERTAB52 PO
[2024-01-31 18:15] LABS: FREE T4 0.83 NG/DL (0.89-1.76); THYROID STIMULATING HORMONE 11.038 uIU/ML (0.55-4.78)
[2024-01-31 18:16] LABS: CALCIUM LEVEL 10.8 MG/DL (8.3-10.6); CREATININE FOR GFR 1.06 MG/DL (0.55-1.30); GLOMERULAR FILTRATION RATE 52.4 (>32); POTASSIUM SERUM 4.3 MMOL/L (3.5-5.1)
== END ==
LOC: M SFHCADAM 12:02
PROVIDERS: ATTEND Physician Assistant
DX: E03.9 Hypothyroidism, unspecified (principal)

== ENCOUNTER → 2024-02-20 | Outpatient (CLI) | payer MEDICARE ==
[~2024-02-20] MED LIST changes: +NYST1POW3 TOP; -NYST1POW9 TOP; -ROSU5TAB40 PO; +ROSU5TAB49 PO
== END ==
LOC: M ADAMS 14:46
PROVIDERS: ATTEND Physician Assistant
DX: J22 Unspecified acute lower respiratory infection (principal)

== ENCOUNTER → 2024-02-20 | Outpatient (REF) | payer MEDICARE ==
[2024-02-20 17:56] LABS: APPEARANCE, URINE CLEAR (CLEAR); BACTERIA, URINE AUTO NEGATIVE (NEGATIVE); BILIRUBIN, URINE AUTO NEGATIVE (NEGATIVE); BLOOD, URINE BLOOD NEGATIVE (NEGATIVE); COLOR, URINE YELLOW (YELLOW); GLUCOSE, URINE (UA) AUTO NEGATIVE (NEGATIVE); KETONE, URINE AUTO NEGATIVE (NEGATIVE); LEUKOCYTE ESTERASE, URINE AUTO NEGATIVE (NEGATIVE); NITRITE, URINE AUTO NEGATIVE (NEGATIVE); PROTEIN, URINE AUTO NEGATIVE (NEGATIVE); RBC, URINE AUTO 0 /HPF (0-3); SPECIFIC GRAVITY URINE AUTO 1.009 (1.002-1.035); SQUAMOUS EPITHELIAL CELL UR AU 1 /HPF (0-6); UROBILINOGEN, URINE AUTO 0.2 mg/dL (0.0-2.0); WBC, URINE AUTO 1 /HPF (0-3)
== END ==
LOC: M SFHCADAM 14:44
PROVIDERS: ATTEND Physician Assistant
DX: J22 Unspecified acute lower respiratory infection (principal); R30.0 Dysuria

== ENCOUNTER → 2024-05-12 | Outpatient (REF) | payer MEDICARE ==
[2024-05-12 17:40] LABS: APPEARANCE, URINE HAZY (CLEAR); BACTERIA, URINE AUTO NEGATIVE (NEGATIVE); BILIRUBIN, URINE AUTO NEGATIVE (NEGATIVE); BLOOD, URINE BLOOD NEGATIVE (NEGATIVE); COLOR, URINE YELLOW (YELLOW); GLUCOSE, URINE (UA) AUTO NEGATIVE (NEGATIVE); KETONE, URINE AUTO NEGATIVE (NEGATIVE); LEUKOCYTE ESTERASE, URINE AUTO TRACE (NEGATIVE); NITRITE, URINE AUTO NEGATIVE (NEGATIVE); PROTEIN, URINE AUTO NEGATIVE (NEGATIVE); RBC, URINE AUTO 0 /HPF (0-3); SPECIFIC GRAVITY URINE AUTO 1.015 (1.002-1.035); SQUAMOUS EPITHELIAL CELL UR AU 3 /HPF (0-6); UROBILINOGEN, URINE AUTO 0.2 mg/dL (0.0-2.0); WBC, URINE AUTO 2 /HPF (0-3)
== END ==
LOC: M SFHCADAM 16:58
PROVIDERS: ATTEND Physician Assistant
DX: R35.0 Frequency of micturition (principal)

== ENCOUNTER → 2024-07-30 | Outpatient (CLI) | payer MEDICARE ==
[~2024-07-30] MED LIST changes: -FLOM0.4C39 PO; +ISOVUE-370 76% 100ML VIAL As Ordered ONE; +TAMS-18 PO
== END ==
LOC: M RAD 10:18
PROVIDERS: ATTEND Urology
DX: C64.2 Malignant neoplasm of left kidney, except renal pelvis (principal)
CPT/HCPCS: 74170; Q9967

== ENCOUNTER → 2024-11-24 | Outpatient (REF) | payer MEDICARE ==
[~2024-11-24] MED LIST changes: -ISOVUE-370 76% 100ML VIAL As Ordered ONE
== END ==
LOC: M SFHCADAM 13:51
PROVIDERS: ATTEND Physician Assistant
DX: Z87.440 Personal history of urinary (tract) infections (principal); N39.0 Urinary tract infection, site not specified

== ENCOUNTER → 2025-01-01 | Outpatient (REF) | payer MEDICARE ==
[2025-01-01 14:03] LABS: CALCIUM LEVEL 10.4 MG/DL (8.3-10.6); CARBON DIOXIDE LEVEL 26.0 MMOL/L (20-31); CHLORIDE LEVEL 104.0 MMOL/L (98-107); CREATININE FOR GFR 1.22 MG/DL (0.55-1.30); GLOMERULAR FILTRATION RATE 43.2 (>32); POTASSIUM SERUM 4.9 MMOL/L (3.5-5.1); SODIUM LEVEL 141.0 MMOL/L (136-145)
== END ==
LOC: M SFHCADAM 10:51
PROVIDERS: ATTEND Physician Assistant
DX: R47.01 Aphasia (principal)

== ENCOUNTER 2025-03-13 12:27 | Observation (INO) | payer MEDICARE ==
[~2025-03-13] VITALS: Ht 165.1 cm; Wt 86.4 kg
[~2025-03-13 12:27] MED LIST changes: -FISH10005 PO; +FISH1CAP38 PO; -ROSU10TA61 PO; +ROSU10TA90 PO
[2025-03-13] MEDS: ACETAMINOPHEN *IV* 1,000 MG in IV 1 EA IV ONE (15:49)
[2025-03-13 16:06] LABS: BASO # 0.1 10^3/uL (0.0-0.2); BASO % 0.4 % (0.0-1.0); EOS # 0.2 10^3/uL (0.0-0.5); EOS % 1.4 % (0.0-3.0); LYMPH # 2.2 10^3/uL (1.5-5.0); LYMPH % 17.5 % (24.0-44.0); MONO # 1.1 10^3/uL (0.0-0.8); MONO % 9.1 % (2.0-8.0); NEUTROPHILS # 8.9 10^3/uL (1.5-8.5); NEUTROPHILS % 71.2 % (36.0-66.0); PLATELET COUNT, AUTOMATED 270 10^3/uL (150-450)
[2025-03-13 16:34] LABS: C REACTIVE PROTEIN QUANTITATIV 4.01 MG/DL (<1.0)
[2025-03-13 16:36] LABS: CALCIUM LEVEL 9.1 MG/DL (8.3-10.6); CARBON DIOXIDE LEVEL 24.0 MMOL/L (20-31); CHLORIDE LEVEL 107.0 MMOL/L (98-107); CREATININE FOR GFR 1.23 MG/DL (0.55-1.30); GLOMERULAR FILTRATION RATE 42.5 (>32); POTASSIUM SERUM 5.2 MMOL/L (3.5-5.1); SODIUM LEVEL 142.0 MMOL/L (136-145)
[2025-03-13] MEDS: IPRATROPIUM 0.5 MG/ALBUTEROL 2.5 MG INH SOL UD 3 ML NEB ONE (19:41)
[2025-03-13 21:02] LABS: CK-MB VALUE MASS 2.2 NG/ML (<3.6)
[2025-03-13 21:05] LABS: CPK CREATINE PHOSPHOKINASE 164.0 U/L (34-145); MB/CK RELATIVE INDEX 1.34 (< OR =4)
[2025-03-13] MEDS ORDERED: IPRATROPIUM 0.5 MG/ALBUTEROL 2.5 MG INH SOL UD 3 ML NEB SCH (21:50)
[2025-03-13] MEDS ORDERED: MOM 30 ML SUSPENSION UDC PO PRN (22:05)
[2025-03-13] MEDS: predniSONE 20 MG TAB PO SCH (22:38)
[2025-03-13] MEDS: FUROSEMIDE 40 MG/4 ML VIAL IV ONE (22:39)
[2025-03-13 22:56] LABS: MAGNESIUM LEVEL 1.9 MG/DL (1.8-2.4)
[2025-03-14] MEDS: ceFAZolin SODIUM 2 GM in DEXTROSE 5% (D5W) ADV/MINI-BAG 50 ML IV SCH (00:47)
[2025-03-14] MEDS ORDERED: RISATAB3 PO (03:38)
[2025-03-14] MEDS ORDERED: METO1TAB32 PO (03:38)
[2025-03-14] MEDS ORDERED: ACET-683 PO (03:41)
[2025-03-14] MEDS ORDERED: ASPI-726 PO (03:50)
[2025-03-14] MEDS ORDERED: HOME MED LIST COMPLETE! XX SCH (04:10)
[2025-03-14] MEDS: IPRATROPIUM 0.5 MG/ALBUTEROL 2.5 MG INH SOL UD 3 ML NEB SCH (04:50)
[2025-03-14] MEDS: LEVOTHYROXINE 50 MCG TABLET (0.05 MG) PO SCH (06:00)
[2025-03-14 07:50] LABS: PLATELET COUNT, AUTOMATED 266 10^3/uL (150-450)
[2025-03-14 08:28] LABS: CALCIUM LEVEL 9.2 MG/DL (8.3-10.6); CARBON DIOXIDE LEVEL 25.0 MMOL/L (20-31); CHLORIDE LEVEL 103.0 MMOL/L (98-107); CREATININE FOR GFR 1.1 MG/DL (0.55-1.30); GLOMERULAR FILTRATION RATE 48.6 (>32); POTASSIUM SERUM 3.7 MMOL/L (3.5-5.1); SODIUM LEVEL 143.0 MMOL/L (136-145)
[2025-03-14] MEDS: FUROSEMIDE 40 MG/4 ML VIAL IV SCH (08:28)
[2025-03-14] MEDS: ENOXAPARIN 40 MG/0.4 ML SYRINGE (J1650 PER 10MG) SC SCH (08:29)
[2025-03-14 09:42] VITALS: O2SAT 94
[2025-03-14 12:00] VITALS: BP 131/81; TEMP 97.6; O2SAT 93
[2025-03-14] MEDS: ROSUVASTATIN 10 MG TAB PO SCH (13:02)
[2025-03-14] MEDS: ASPIRIN 81 MG CHEWABLE TABLET PO ONE (13:02)
[2025-03-14] MEDS: METOPROLOL SUCC *XL* 12.5 MG PER 1/2 TAB PO SCH (13:03)
[2025-03-14] MEDS: LOSARTAN 25 MG TAB PO SCH (13:04)
[2025-03-14] MEDS: CLOPIDOGREL 75 MG TAB PO ONE (13:05)
[2025-03-14 14:00] VITALS: BP 150/89; TEMP 97.1; O2SAT 95
[2025-03-14 19:41] VITALS: BP 129/60; TEMP 97.9; O2SAT 94
[2025-03-15 04:05] VITALS: BP 107/56; TEMP 99.2; O2SAT 92
[2025-03-15] MEDS: ASPIRIN 81 MG CHEWABLE TABLET PO SCH (08:18)
[2025-03-15] MEDS: CLOPIDOGREL 75 MG TAB PO SCH (08:18)
[2025-03-15 10:39] LABS: BASO # 0.0 10^3/uL (0.0-0.2); BASO % 0.2 % (0.0-1.0); EOS # 0.1 10^3/uL (0.0-0.5); EOS % 0.3 % (0.0-3.0); LYMPH # 2.0 10^3/uL (1.5-5.0); LYMPH % 12.4 % (24.0-44.0); MONO # 1.2 10^3/uL (0.0-0.8); MONO % 7.6 % (2.0-8.0); NEUTROPHILS # 12.8 10^3/uL (1.5-8.5); NEUTROPHILS % 78.9 % (36.0-66.0); PLATELET COUNT, AUTOMATED 293 10^3/uL (150-450)
[2025-03-15 11:23] LABS: CALCIUM LEVEL 9.2 MG/DL (8.3-10.6); CARBON DIOXIDE LEVEL 27.0 MMOL/L (20-31); CHLORIDE LEVEL 102.0 MMOL/L (98-107); CREATININE FOR GFR 1.35 MG/DL (0.55-1.30); GLOMERULAR FILTRATION RATE 38.0 (>32); MAGNESIUM LEVEL 1.8 MG/DL (1.8-2.4); POTASSIUM SERUM 4.1 MMOL/L (3.5-5.1); SODIUM LEVEL 140.0 MMOL/L (136-145)
[2025-03-15 12:00] VITALS: BP 137/65; TEMP 97.9; O2SAT 92
[2025-03-15 14:00] VITALS: BP 127/63; TEMP 98; O2SAT 93
[2025-03-15 19:45] VITALS: BP 149/64; TEMP 97.5; O2SAT 90
[2025-03-16 04:22] VITALS: BP 123/58; TEMP 97.2; O2SAT 91
[2025-03-16 07:35] LABS: BASO # 0.0 10^3/uL (0.0-0.2); BASO % 0.1 % (0.0-1.0); EOS # 0.0 10^3/uL (0.0-0.5); EOS % 0.1 % (0.0-3.0); LYMPH # 1.4 10^3/uL (1.5-5.0); LYMPH % 10.2 % (24.0-44.0); MONO # 1.1 10^3/uL (0.0-0.8); MONO % 8.1 % (2.0-8.0); NEUTROPHILS # 11.0 10^3/uL (1.5-8.5); NEUTROPHILS % 80.6 % (36.0-66.0); PLATELET COUNT, AUTOMATED 289 10^3/uL (150-450)
[2025-03-16 07:54] LABS: CALCIUM LEVEL 9.0 MG/DL (8.3-10.6); CARBON DIOXIDE LEVEL 28.0 MMOL/L (20-31); CHLORIDE LEVEL 105.0 MMOL/L (98-107); CREATININE FOR GFR 1.38 MG/DL (0.55-1.30); GLOMERULAR FILTRATION RATE 37.1 (>32); POTASSIUM SERUM 4.5 MMOL/L (3.5-5.1); SODIUM LEVEL 142.0 MMOL/L (136-145)
[2025-03-16] MEDS: ACETAMINOPHEN 325 MG TAB PO PRN (09:32)
[2025-03-16] MEDS: NS (Normal Saline) 0.9% 1,000 ML IV ONE (11:30)
[2025-03-16 14:00] VITALS: BP 144/70; TEMP 98; O2SAT 93
[2025-03-16 22:04] VITALS: BP 139/65; TEMP 97.9; O2SAT 91
[2025-03-17 05:57] VITALS: BP 181/77; TEMP 97.9; O2SAT 91
[2025-03-17 08:32] VITALS: BP 139/67
[2025-03-17 08:34] VITALS: TEMP 98.2
[2025-03-17 08:44] LABS: BASO # 0.0 10^3/uL (0.0-0.2); BASO % 0.2 % (0.0-1.0); EOS # 0.0 10^3/uL (0.0-0.5); EOS % 0.2 % (0.0-3.0); LYMPH # 1.2 10^3/uL (1.5-5.0); LYMPH % 10.0 % (24.0-44.0); MONO # 0.8 10^3/uL (0.0-0.8); MONO % 6.6 % (2.0-8.0); NEUTROPHILS # 9.8 10^3/uL (1.5-8.5); NEUTROPHILS % 81.6 % (36.0-66.0); PLATELET COUNT, AUTOMATED 304 10^3/uL (150-450)
[2025-03-17] MEDS: NS (Normal Saline) 0.9% 1,000 ML IV SCH (08:45)
[2025-03-17] MEDS: amLODIPine 5 MG TAB PO SCH (08:45)
[2025-03-17 09:17] LABS: CALCIUM LEVEL 9.3 MG/DL (8.3-10.6); CARBON DIOXIDE LEVEL 26.0 MMOL/L (20-31); CHLORIDE LEVEL 108.0 MMOL/L (98-107); CREATININE FOR GFR 0.99 MG/DL (0.55-1.30); GLOMERULAR FILTRATION RATE 55.2 (>32); POTASSIUM SERUM 4.8 MMOL/L (3.5-5.1); SODIUM LEVEL 143.0 MMOL/L (136-145)
[2025-03-17 14:00] VITALS: BP 133/76; TEMP 97.3; O2SAT 93
[2025-03-17 14:06] LABS: CALCIUM LEVEL 9.5 MG/DL (8.3-10.6); CARBON DIOXIDE LEVEL 25.0 MMOL/L (20-31); CHLORIDE LEVEL 106.0 MMOL/L (98-107); CREATININE FOR GFR 0.95 MG/DL (0.55-1.30); GLOMERULAR FILTRATION RATE 58.0 (>32); POTASSIUM SERUM 4.2 MMOL/L (3.5-5.1); SODIUM LEVEL 143.0 MMOL/L (136-145)
[2025-03-17] MEDS ORDERED: AMLO1TAB24 PO (14:48)
[2025-03-17] MEDS ORDERED: CEFD1CAP9 PO (14:48)
== END 2025-03-17 17:00 | disposition home health service (06) ==
LOC: M ED 12:27 → M ED INP 12:28 → M MS5PR 03-14 11:30 → INTOOBSV 03-15 10:14 → OBSVTOIN 03-15 10:14
PROVIDERS: ADMIT Student in an Organized Health Care Education/Training Program; ATTEND Internal Medicine
DX: L03.116 Cellulitis of left lower limb (principal); Z66 Do not resuscitate; F03.90 Unspecified dementia, unspecified severity, without behavioral disturbance, psychotic disturbance, mood disturbance, and anxiety; M54.50 Low back pain, unspecified; G89.29 Other chronic pain; E03.9 Hypothyroidism, unspecified; N17.9 Acute kidney failure, unspecified; R06.2 Wheezing; I10 Essential (primary) hypertension; E78.5 Hyperlipidemia, unspecified; Z86.73 Personal history of transient ischemic attack (TIA), and cerebral infarction without residual deficits; R26.89 Other abnormalities of gait and mobility; M10.9 Gout, unspecified; Z79.82 Long term (current) use of aspirin; Z79.890 Hormone replacement therapy; Z79.899 Other long term (current) drug therapy; Z88.5 Allergy status to narcotic agent; Z88.8 Allergy status to other drugs, medicaments and biological substances; Z87.891 Personal history of nicotine dependence; R09.89 Other specified symptoms and signs involving the circulatory and respiratory systems
CPT/HCPCS: 36415; 71045; 71250; 73630; 80048; 82550; 82553; 83605; 83735; 83880; 84145; 84484; 84550; 85025; 85027; 85652; 86140; 87040; 87486; 87581; 87633; 87641; 87798; 93306; 93971; 94640; 96365; 96372; 96376; 97116; 97161; 97165; 97530; 99284; G0378; J0134; J0688; J1650; J1938; J3010; J7512

== ENCOUNTER → 2025-03-31 | Outpatient (REF) | payer MEDICARE ==
[~2025-03-31] MED LIST changes: +ACET-683 PO; +AMLO1TAB24 PO; +ASPI-726 PO; +METO1TAB32 PO
[2025-03-31 17:24] LABS: C REACTIVE PROTEIN QUANTITATIV 2.59 MG/DL (<1.0)
[2025-03-31 17:25] LABS: ALT/SGPT 30.0 U/L (7.0-40); AST/SGOT 46.0 U/L (<34); CALCIUM LEVEL 10.2 MG/DL (8.3-10.6); CARBON DIOXIDE LEVEL 27.0 MMOL/L (20-31); CHLORIDE LEVEL 104.0 MMOL/L (98-107); CREATININE FOR GFR 1.26 MG/DL (0.55-1.30); GLOMERULAR FILTRATION RATE 41.3 (>32); POTASSIUM SERUM 4.5 MMOL/L (3.5-5.1); SODIUM LEVEL 141.0 MMOL/L (136-145)
[2025-03-31 17:31] LABS: BASO # 0.1 10^3/uL (0.0-0.2); BASO % 0.8 % (0.0-1.0); EOS # 0.3 10^3/uL (0.0-0.5); EOS % 2.2 % (0.0-3.0); LYMPH # 2.5 10^3/uL (1.5-5.0); LYMPH % 19.2 % (24.0-44.0); MONO # 0.9 10^3/uL (0.0-0.8); MONO % 7.1 % (2.0-8.0); NEUTROPHILS # 9.2 10^3/uL (1.5-8.5); NEUTROPHILS % 70.1 % (36.0-66.0); PLATELET COUNT, AUTOMATED 383 10^3/uL (150-450)
== END ==
LOC: M SFHCADAM 14:27
PROVIDERS: ATTEND Physician Assistant
DX: R09.82 Postnasal drip (principal); N18.31 Chronic kidney disease, stage 3a; R70.0 Elevated erythrocyte sedimentation rate